=== PATIENT | male | born 1960 | race Caucasian/White ===

== ENCOUNTER → 2017-01-06 | Outpatient (CLI) | payer OTHER ==
[~2017-01-06] MED LIST: ACYC-57 PO; ALPR1TAB3 PO; ATOR-22 PO; IBUP-1451 PO; OXYC-106 PO; VALA1TAB PO
== END | disposition home or self-care (01) ==
LOC: C.LAB 07:02
PROVIDERS: ATTEND Internal Medicine Cardiovascular Disease
DX: Z11.59 Encounter for screening for other viral diseases (principal); E78.5 Hyperlipidemia, unspecified

== ENCOUNTER → 2017-03-12 | Outpatient (CLI) | payer OTHER ==
[2017-03-12 13:39] LABS: LYME DISEASE AB IGG NEG (NEG); LYME DISEASE AB IGM NEG (NEG)
== END | disposition home or self-care (01) ==
LOC: C.LAB 08:44
PROVIDERS: ATTEND Physician Assistant Medical
DX: M25.50 Pain in unspecified joint (principal)

== ENCOUNTER → 2017-07-22 | Outpatient (CLI) | payer OTHER ==
[~2017-07-22] MED LIST changes: -ACYC-57 PO; +ACYC1CAP8 PO
[2017-07-22 10:00] LABS: ALT/SGPT 27 U/L (12-78); AST/SGOT 19 U/L (15-37); BLOOD UREA NITROGEN 14 mg/dl (7-18); CALCIUM 9.2 mg/dl (8.5-10.1); CARBON DIOXIDE 24 mmol/L (21-32); CHLORIDE 106 mmol/L (98-107); CHOLESTEROL 210 mg/dl (0-200); CREATININE 0.64 mg/dl (0.60-1.40); GLUCOSE 94 mg/dl (70-99); POTASSIUM 4.5 mmol/L (3.5-5.1); SODIUM 136 mmol/L (136-145); TRIGLYCERIDES 100 mg/dl (0-150); VERY LOW DENSITY LIPOPROT CALC 20 mg/dl
[2017-07-22 10:03] LABS: HDL CHOLESTEROL 70 mg/dl; LDL CHOLESTEROL CALCULATED 120 mg/dl
== END | disposition home or self-care (01) ==
LOC: C.LAB 07:29
PROVIDERS: ATTEND Internal Medicine Cardiovascular Disease
DX: E78.5 Hyperlipidemia, unspecified (principal); I10 Essential (primary) hypertension

== ENCOUNTER 2017-10-25 06:19 | Emergency (ER) | payer OTHER ==
[~2017-10-25] VITALS: Ht 175.3 cm; Wt 77.0 kg
[~2017-10-25 06:19] MED LIST changes: +ACYC-57 PO; -ACYC1CAP8 PO
[2017-10-25 06:26] VITALS: TEMP 36.7; Ht 175.3 cm; Wt 77.0 kg
[2017-10-25] MEDS ORDERED: HYDROmorphone INJ 2 MG/ML SYR/VIAL IV STA (06:42)
[2017-10-25] MEDS ORDERED: KETOROLAC TROMETHAMINE 30 MG/ML VIAL IV STA (06:42)
[2017-10-25] MEDS ORDERED: ONDANSETRON INJ 2 MG/ML 2 ML VIAL IV STA (06:42)
--- NOTE | 2017-10-25 07:31 | DIAGNOSTIC IMAGING REPORT ---
LUMBAR SPINE 5 VIEWS CLINICAL HISTORY: Low back pain radiating into the right leg. FINDINGS: 5 views of the lumbar spine are obtained No prior studies are available for comparison at the time of dictation. . The skeletal structures are well mineralized. There is no radiographic evidence of fracture or malalignment. Vertebral body height and alignment are maintained. The transverse and spinous processes are intact. There is no evidence of spondylolysis. Tiny anterior osteophytes are seen throughout. The intervertebral disc spaces are well-maintained. The visualized bony pelvis appears intact. There is a nonobstructed abdominal bowel gas pattern. Moderate colonic fecal retention is noted. Phleboliths are observed in the pelvis. There is age advanced atherosclerotic calcification of the abdominal aorta. Surgical clips are noted in the right groin. IMPRESSION: No acute bony abnormality is seen involving the lumbosacral spine. Electronically signed by: Pee Todd M.D. 10/25/2017 7:29 AM Dictated Date/Time: 10/25/2017 7:28 AM
[2017-10-25] MEDS ORDERED: OPTIRAY 320 IV PRN (07:45)
--- NOTE | 2017-10-25 08:01 | EMERGENCY ROOM VISIT NOTE ---
History Report prepared by Kaitlyn: Carmelita Robles Under the Supervision of: Dr. Ernesto Boykin M.D. First contact with patient: 06:36 Chief Complaint: BACK PAIN Stated Complaint: BACK PAIN,SHOOTING PAINS DOWN RT LEG,TOP OF BUTTOC History of Present Illness The patient is a 56 year old male who presents to the Emergency Room with complaints of persistent back pain starting around 16 hours ago. The patient slipped on ice yesterday and nearly fell. He twisted his back and felt a twinge in his right lower back. He rates his discomfort as an 8/10 in severity at rest. The pain worsens with movement. He reports burning and tingling down his right thigh to his knee. He had some numbness in his foot for a short time yesterday. He currently does not have any numbness or tingling in his feet. He has tried taking ibuprofen, cyclobenzaprine, and Percocet which has taken the edge off the pain. He has a history of hypertension, high cholesterol, and sciatica. Pt denies LOC, headache, neck pain, fevers, chills, malaise, night sweats, weight loss, history of malignancy, chest pain, breathing difficulties, abdominal pain, saddle parasthesias, bowel or bladder dysfunction, weakness, urinary symptoms, or other complaints. Source of History: patient Onset: 16 hours ago Position: back (right lower) Symptom Intensity: 8/10 Quality: other (pain) Timing: other (persistent) Modifying Factors (Worsening): movement Associated Symptoms: + numbness (resolved) Note: Pt reports right thigh burning. Review of Systems See HPI for pertinent positives and negatives. A total of ten systems were reviewed and were otherwise negative. Past Medical & Surgical Medical Problems: (1) Hypercholesteremia (2) Hypertension Family History Hypertension Social History Smoking Status: Never Smoker Alcohol Use: occasionally Marital Status: Housing Status: lives with significant other Occupation Status: employed Current/Historical Medications Scheduled Atorvastatin (Lipitor), 20 MG PO DAILY Ibuprofen Tab (Motrin), 800 MG PO QAM Prednisone (Prednisone), 50 MG PO DAILY Scheduled PRN Alprazolam (Xanax), 1 MG PO BID PRN for Anxiety/Agitation Oxycodone Ir (Roxicodone Ir), 1-2 TAB PO Q4H PRN for Pain Allergies Coded Allergies: No Known Allergies (Unverified , 10/25/17) Physical Exam Vital Signs Date Time Temp Pulse Resp B/P (MAP) Pulse Ox O2 Delivery O2 Flow Rate FiO2 10/25/17 11:26 60 18 139/88 96 10/25/17 11:07 57 18 139/88 96 Room Air 10/25/17 06:59 71 18 97 10/25/17 06:54 67 20 97 Room Air 10/25/17 06:54 67 10/25/17 06:49 117/74 10/25/17 06:26 36.7 80 18 154/85 98 Room Air Physical Exam GENERAL: Awake, alert, uncomfortable-appearing, in no distress HENT: Normocephalic, atraumatic. Oropharynx unremarkable. EYES: Normal conjunctiva. Sclera non-icteric. NECK: Supple. No nuchal rigidity. FROM. No JVD. RESPIRATORY: Clear to auscultation. CARDIAC: Regular rate, normal rhythm. Extremities warm and well perfused. Pulses equal. ABDOMEN: Soft, non-distended. No tenderness to palpation. No rebound or guarding. No masses. RECTAL: Deferred. MUSCULOSKELETAL: Chest examination reveals no tenderness. The back is symmetrical on inspection without obvious abnormality. Tenderness in the right sciatic notch. There is no CVA tenderness to palpation. No joint edema. LOWER EXTREMITIES: Calves are equal size bilaterally and non-tender. No edema. No discoloration. NEURO: Normal sensorium. No sensory or motor deficits noted. No saddle anesthesia. Reflexes symmetric. Normal EHL function. SKIN: No rash or jaundice noted. Medical Decision & Procedures ER Provider Diagnostic Interpretation: Xray results as stated below per my and radiologist interpretation. Radiology results as stated below per my review and radiologist interpretation: LUMBAR SPINE 5 VIEWS CLINICAL HISTORY: Low back pain radiating into the right leg. FINDINGS: 5 views of the lumbar spine are obtained No prior studies are available for comparison at the time of dictation. . The skeletal structures are well mineralized. There is no radiographic evidence of fracture or malalignment. Vertebral body height and alignment are maintained. The transverse and spinous processes are intact. There is no evidence of spondylolysis. Tiny anterior osteophytes are seen throughout. The intervertebral disc spaces are well-maintained. The visualized bony pelvis appears intact. There is a nonobstructed abdominal bowel gas pattern. Moderate colonic fecal retention is noted. Phleboliths are observed in the pelvis. There is age advanced atherosclerotic calcification of the abdominal aorta. Surgical clips are noted in the right groin. IMPRESSION: No acute bony abnormality is seen involving the lumbosacral spine. Electronically signed by: Pee Todd M.D. 10/25/2017 7:29 AM Dictated Date/Time: 10/25/2017 7:28 AM ABDOMEN AND PELVIS CTA CLINICAL HISTORY: Right-sided back pain. Right leg pain. TECHNIQUE: Multiaxial CT images of the abdomen pelvis performed following the use of intravenous contrast only to evaluate the major arterial structures. Maximal intensity projection images were also obtained. COMPARISON STUDY: None. FINDINGS: Moderate calcified plaque within the abdominal aorta and common iliac arteries. The abdominal aorta is normal in course and caliber with no evidence for dissection. The iliac arteries are also widely patent. Moderate calcified plaque within the femoral arteries resulting in approximately 30% stenosis within the proximal bilateral superficial femoral arteries. The celiac artery, superior mesenteric artery, inferior mesenteric artery, and single bilateral renal arteries are widely patent. Punctate calcified granuloma within the right lower lobe. No pneumoperitoneum. No pneumatosis. No fractures within the visualized osseous structures. There is atrophic right rectus abdominous muscle. The liver, gallbladder, adrenal glands, and pancreas are unremarkable. Heterogeneous perfusion within the spleen is likely due to the timing of contrast. The kidneys enhance normally. No hydronephrosis. No retroperitoneal lymphadenopathy. The bladder is mildly distended. No bowel wall thickening or obstruction. Normal appendix. IMPRESSION: 1. No evidence for aneurysm or dissection within the aorta or iliac arteries. 2. Approximately 30% focal stenosis within the proximal bilateral superficial femoral arteries. 3. No bowel wall thickening or obstruction. 4. Normal appendix. Electronically signed by: Osvaldo Serrano M.D. 10/25/2017 10:05 AM Dictated Date/Time: 10/25/2017 9:49 AM Laboratory Results 10/25/17 07:50 Red Blood Count 3.94, Mean Corpuscular Volume 95.4, Mean Corpuscular Hemoglobin 35.0, Mean Corpuscular Hemoglobin Concent 36.7, Mean Platelet Volume 8.7, Neutrophils (%) (Auto) 71.1, Lymphocytes (%) (Auto) 18.6, Monocytes (%) (Auto) 8.5, Eosinophils (%) (Auto) 1.4, Basophils (%) (Auto) 0.2, Neutrophils # (Auto) 4.63, Lymphocytes # (Auto) 1.21, Monocytes # (Auto) 0.55, Eosinophils # (Auto) 0.09, Basophils # (Auto) 0.01 10/25/17 07:50 Test 10/25/17 07:50 White Blood Count 6.50 K/uL (4.8-10.8) Red Blood Count 3.94 M/uL (4.7-6.1) Hemoglobin 13.8 g/dL (14.0-18.0) Hematocrit 37.6 % (42-52) Mean Corpuscular Volume 95.4 fL (80-100) Mean Corpuscular Hemoglobin 35.0 pg (25-34) Mean Corpuscular Hemoglobin Concent 36.7 g/dl (32-36) Platelet Count 215 K/uL (130-400) Mean Platelet Volume 8.7 fL (7.4-10.4) Neutrophils (%) (Auto) 71.1 % Lymphocytes (%) (Auto) 18.6 % Monocytes (%) (Auto) 8.5 % Eosinophils (%) (Auto) 1.4 % Basophils (%) (Auto) 0.2 % Neutrophils # (Auto) 4.63 K/uL (1.4-6.5) Lymphocytes # (Auto) 1.21 K/uL (1.2-3.4) Monocytes # (Auto) 0.55 K/uL (0.11-0.59) Eosinophils # (Auto) 0.09 K/uL (0-0.5) Basophils # (Auto) 0.01 K/uL (0-0.2) RDW Standard Deviation 45.3 fL (36.4-46.3) RDW Coefficient of Variation 13.0 % (11.5-14.5) Immature Granulocyte % (Auto) 0.2 % Immature Granulocyte # (Auto) 0.01 K/uL (0.00-0.02) Anion Gap 10.0 mmol/L (3-11) Est Creatinine Clear Calc Drug Dose 128.5 ml/min Estimated GFR () 126.9 Estimated GFR (Non- 109.5 BUN/Creatinine Ratio 15.3 (10-20) Calcium Level 9.3 mg/dl (8.5-10.1) Laboratory results reviewed by [facility] Medications Administered Medications (Trade) Dose Ordered Sig/Foreign Route Start Time Stop Time Status Last Admin Dose Admin Ondansetron HCl (Zofran Inj) 4 mg NOW STAT IV 10/25/17 06:42 10/25/17 06:47 DC 10/25/17 07:04 4 MG Hydromorphone HCl (Dilaudid Inj) 1 mg NOW STAT IV 10/25/17 06:42 10/25/17 06:47 DC 10/25/17 07:04 1 MG Ketorolac Tromethamine (Toradol Inj) 15 mg NOW STAT IV 10/25/17 06:42 10/25/17 06:47 DC 10/25/17 07:04 15 MG Hydromorphone HCl (Dilaudid Inj) 0.5 mg NOW STAT IV 10/25/17 09:15 10/25/17 09:16 DC 10/25/17 09:39 0.5 MG Prednisone (PredniSONE TAB) 60 mg NOW STAT PO 10/25/17 11:14 10/25/17 11:15 DC 10/25/17 11:20 60 MG ED Course 0641: The patient was evaluated in room B4B. A complete history and physical exam was performed. 0642: Toradol Inj 15 mg IV, Dilaudid Inj 1 mg IV, Zofran Inj 4 mg IV. 0740: I reevaluated the patient. He is feeling better. I updated him on the results. 0856: The patient has returned from CT. 0912: The patient is requesting something more for pain. 0915: Dilaudid Inj 0.5 mg IV. 1032: I reevaluated the patient. I discussed results and discharge instructions : He verbalized understanding and agreement. The patient is ready for discharge. Medical Decision Prior records/ancillary studies reviewed. Triage Nursing notes reviewed and agree them. Additional history obtained from the family. The patient's history was concerning for back pain. Differential diagnosis: Etiologies such as fracture, aortic disease, metastatic disease, cord compression, discitis, infection, renal colic, gastrointestinal, lumbago, sciatica, cauda equina, as well as others were entertained. Physical findings: As above. Right-sided sciatic notch tenderness. ER treatment provided: Saline lock IV Zofran IV Dilaudid 1 mg IV Toradol 10 mg On reassessment the patient felt better. The patient had recurrent pain and was given Dilaudid 0.5 mg. On reassessment he felt much better. Diagnostics interpreted by me: The labs revealed unremarkable CBC and chemistry panel. Imaging studies: X-rays and CT angiogram as above The patient has symptoms consistent with sciatica. The patient was found to have significant aortic calcification on x-ray imaging. CT did not reveal any evidence of dissection. He also has some narrowing of his femoral arteries but denies any symptoms of claudication. The patient will need close follow-up. He is being monitored by cardiology and his primary physician secondary to his family history of coronary disease. Close outpatient follow-up will be necessary. The patient and his were educated. I gave my usual and customary discussion regarding this issue. By the evaluation outlined above emergent etiologies such as fracture, aortic dissection, metastatic disease, infection, renal colic, gastrointestinal, cord compression, cauda equina, as well as others were deemed relatively unlikely. The patient was informed about the findings as listed above. All questions were answered and was very pleased with the treatment. Return instructions were outlined and the patient was discharged in stable condition. Outpatient prescription management: Oxy IR 5mg 1-2 po Q4 hrs prn Prednisone Referral: The patient was referred back to his primary care physician and to [facility] spine for follow-up for a recheck of the current condition. [place] Drug Monitoring Program Search Results: patient reviewed within database, no issues identified Medication Reconcilliation Current Medication List: was personally reviewed by me Blood Pressure Screening Patient's blood pressure: Elevated blood pressure Blood pressure disposition: Referred to PCP Impression Primary Impression: Right-sided back pain Additional Impressions: Sciatica Atherosclerosis of abdominal aorta Scribe Attestation The scribe's documentation has been prepared under my direction and personally reviewed by me in its entirety. I confirm that the note above accurately reflects all work, treatment, procedures, and medical decision making performed by me. Departure Information Dispostion Home / Self-Care Prescriptions Oxycodone Ir (Roxicodone Ir) 5 Mg Tab 1-2 TAB PO Q4H Y for Pain, #15 TAB Prov: Ernesto Boykin MD 10/25/17 Prednisone (Prednisone) 50 Mg Tab 50 MG PO DAILY for 4 Days, #4 TAB Prov: Ernesto Boykin MD 10/25/17 Referrals Maik Whitten M.D. (PCP) Thaddeus Medrano D.O. Patient Instructions My [facility] Additional Instructions DO NOT drive, drink alcohol, operate machinery, or perform dangerous activities today. You were given medications in the ER that can affect your ability to safely function or operate a vehicle. Prednisone 50mg: Once daily until the prescription is finished. It is best to take this earlier in the day as some patients note occasional difficulty falling asleep when taken in the late evening. Oxycodone (OxyIR) 5mg: Take 1-2 pills every four hours for breakthrough pain. Avoid alcohol, operating machinery or dangerous equipment, working on ladders or roofs, DRIVING, or situations where being under the influence may be dangerous. It is recommended to use an [id number] stool softener such as Colace, 100mg twice daily while taking this medication to avoid constipation. Ibuprofen(Motrin, Advil) may be used for fever or pain. Use 600mg every six hours as needed. Take with food. Avoid using more than 2400mg in a 24 hour period. Do not use 2400mg per day for more than three consecutive days without physician direction. Prolonged inappropriate use can lead to stomach upset or ulcers. This medication can be taken if you need to drive, work, or perform activities which may be dangerous when taking narcotic pain medication. (AND/OR) Acetaminophen(Tylenol) may be used for fever or pain. Use 1000mg every six hours as needed. Avoid using more than 4000mg in a 24 hour period. This medication can be taken if you need to drive, work, or perform activities which may be dangerous when taking narcotic pain medication. Rest and avoid heavy lifting until your symptoms resolve and then gradually return to full activity. A good rule of thumb is if it hurts your back to perform a certain activity, then it should be avoided until you are healthy again. A heating pad, warm compresses, or a hot shower may help with tight muscles and can be done several times a day as needed. Continue current medications. Return to the ER immediately for any numbness, tingling, severe pain, loss of control of your bowels or bladder, inability to walk, or as needed. Follow up with your primary care physician and orthopedic spine for a recheck of your current condition. Number for Dr. Medrano is listed below. Problem Qualifiers
[2017-10-25 08:08] LABS: BASO % 0.2 %; BASO ABS # 0.01 K/uL (0-0.2); EOS % 1.4 %; EOS ABS # 0.09 K/uL (0-0.5); HEMATOCRIT 37.6 % (42-52); HEMOGLOBIN 13.8 g/dL (14.0-18.0); IG# 0.01 K/uL (0.00-0.02); LYMPH % 18.6 %; LYMPH ABS # 1.21 K/uL (1.2-3.4); MEAN CELL VOLUME 95.4 fL (80-100); MEAN CORPUSCULAR HGB CONC 36.7 g/dl (32-36); MEAN PLATELET VOLUME 8.7 fL (7.4-10.4); MONO % 8.5 %; MONO ABS # 0.55 K/uL (0.11-0.59); NEUT % 71.1 %; NEUT ABS # 4.63 K/uL (1.4-6.5); PLATELET COUNT 215 K/uL (130-400); RED CELL DISTRIBUTION WIDTH SD 45.3 fL (36.4-46.3)
[2017-10-25 08:25] LABS: CALCIUM 9.3 mg/dl (8.5-10.1); CREATININE 0.65 mg/dl (0.60-1.40)
[2017-10-25] MEDS ORDERED: HYDROmorphone INJ 0.5 MG/0.5 ML SYR IV STA (09:15)
--- NOTE | 2017-10-25 10:06 | DIAGNOSTIC IMAGING REPORT ---
ABDOMEN AND PELVIS CTA CLINICAL HISTORY: Right-sided back pain. Right leg pain. TECHNIQUE: Multiaxial CT images of the abdomen pelvis performed following the use of intravenous contrast only to evaluate the major arterial structures. Maximal intensity projection images were also obtained. COMPARISON STUDY: None. FINDINGS: Moderate calcified plaque within the abdominal aorta and common iliac arteries. The abdominal aorta is normal in course and caliber with no evidence for dissection. The iliac arteries are also widely patent. Moderate calcified plaque within the femoral arteries resulting in approximately 30% stenosis within the proximal bilateral superficial femoral arteries. The celiac artery, superior mesenteric artery, inferior mesenteric artery, and single bilateral renal arteries are widely patent. Punctate calcified granuloma within the right lower lobe. No pneumoperitoneum. No pneumatosis. No fractures within the visualized osseous structures. There is atrophic right rectus abdominous muscle. The liver, gallbladder, adrenal glands, and pancreas are unremarkable. Heterogeneous perfusion within the spleen is likely due to the timing of contrast. The kidneys enhance normally. No hydronephrosis. No retroperitoneal lymphadenopathy. The bladder is mildly distended. No bowel wall thickening or obstruction. Normal appendix. IMPRESSION: 1. No evidence for aneurysm or dissection within the aorta or iliac arteries. 2. Approximately 30% focal stenosis within the proximal bilateral superficial femoral arteries. 3. No bowel wall thickening or obstruction. 4. Normal appendix. Electronically signed by: Osvaldo Serrano M.D. 10/25/2017 10:05 AM Dictated Date/Time: 10/25/2017 9:49 AM
[2017-10-25] MEDS ORDERED: OXYC1TAB3 PO (11:01)
[2017-10-25] MEDS ORDERED: PRED50TA PO (11:01)
[2017-10-25 11:26] VITALS: BP 139/88; PULSE 60; O2SAT 96
== END 2017-10-25 11:26 | disposition home or self-care (01) ==
LOC: C.EDB 06:21
DX: M54.41 Lumbago with sciatica, right side (principal); I70.0 Atherosclerosis of aorta; I10 Essential (primary) hypertension; E78.00 Pure hypercholesterolemia, unspecified; Z79.899 Other long term (current) drug therapy; W00.9XXA Unspecified fall due to ice and snow, initial encounter

== ENCOUNTER → 2018-01-19 | Outpatient (CLI) | payer OTHER ==
[~2018-01-19] MED LIST changes: -ACYC-57 PO; -OXYC-106 PO; +OXYC1TAB3 PO; -VALA1TAB PO
[2018-01-19 10:02] LABS: ALT/SGPT 27 U/L (12-78); AST/SGOT 25 U/L (15-37); BLOOD UREA NITROGEN 11 mg/dl (7-18); CALCIUM 9.9 mg/dl (8.5-10.1); CARBON DIOXIDE 30 mmol/L (21-32); GLUCOSE 78 mg/dl (70-99); POTASSIUM 4.4 mmol/L (3.5-5.1); SODIUM 134 mmol/L (136-145)
[2018-01-19 10:05] LABS: CHOLESTEROL 206 mg/dl (0-200); LDL CHOLESTEROL CALCULATED 104 mg/dl
== END | disposition home or self-care (01) ==
LOC: C.LAB 07:06
PROVIDERS: ATTEND Internal Medicine Cardiovascular Disease
DX: E78.5 Hyperlipidemia, unspecified (principal); I10 Essential (primary) hypertension; Z12.5 Encounter for screening for malignant neoplasm of prostate

== ENCOUNTER 2023-08-29 12:03 | Inpatient (IN) ==
--- NOTE | 2023-08-29 12:43 | Emergency Department Note ---
History of Present Illness General Chief complaint: Back Injury/Pain Stated complaint: BACK PAIN, DIFFICULTY WALKING Time Seen by Provider: 08/29/23 12:19 History of Present Illness Maximum Pain Intensity: 8 NAME: JOSE BELTRÁN AGE: 62 SEX: M : 1960 ARRIVES VIA: Walk-In INFORMANT: Patient ED PROVIDER(S): DARYL Hedrick, Donna Victoria MD The patient is a 62-year-old male who arrives to the emergency department for evaluation of sacral pain from a known L4-L5 1.6 centimeter synovial cyst with severe central canal stenosis. The patient was offered admission at the time or the option to attempt to get through the weekend at home with evaluation from Dr. Medrano on Wednesday. The patient chose to go home for the weekend, he was provided pain medication and steroids as directed by Dr. Medrano. The patient was instructed to return Wednesday if the pain was worsening, for admission at that time with a procedure the following day. At this time the patient's symptoms are worsening even with the pain medication and steroids. The patient reports he is unable to walk at this point without severe pain. He reports he is having a difficult time emptying his bladder due to the pain it causes him to create a strong urine stream. The patient denies any fever, loss of bowel or bladder, or numbness/tingling in the groin, at this time. Home Medications Medication Instructions Recorded Confirmed Type coenzyme Q10 100 mg capsule 200 mg PO QAM 03/19/20 08/29/23 History valacyclovir 1 gram tablet 2,000 mg (2 x 1 gram) PO BID PRN 10/12/22 08/29/23 Rx herpes simplex, type 1 infection #60 tabs dutasteride 0.5 mg capsule 0.5 mg PO DAILY #30 caps 06/16/23 08/29/23 Rx (Avodart) tamsulosin 0.4 mg capsule 0.4 mg PO DAILY #30 caps 06/30/23 08/29/23 Rx marijuana card See Rx Instructions .Route .COMPLEX 08/02/23 08/29/23 History atorvastatin 20 mg tablet 20 mg PO HS #90 tabs 08/17/23 08/29/23 Rx cyclobenzaprine 10 mg tablet 10 mg PO .COMPLEX PRN muscle spasm 08/24/23 08/29/23 Rx #90 tabs lidocaine 5 % topical patch 1 patch topical DAILY #3 ea 08/27/23 08/29/23 Rx (DermacinRx Lidocan) prednisone 20 mg tablet 40 mg (2 x 20 mg) PO DAILY 5 days 08/27/23 08/29/23 Rx #10 tabs oxycodone 5 mg tablet 5 mg PO Q6H PRN pain 08/29/23 08/29/23 History Allergies Allergy/AdvReac Type Severity Reaction Status Date / Time No Known Allergies Allergy Verified 08/24/23 11:38 Past Med/Surg History Medical History (Updated 08/29/23 @ 17:36 by DARYL Dwyer) Sacroiliac joint pain Muscle strain of left gluteal region Degloving injury Sciatica of right side Hypertension Surgical History S/P trigger finger release H/O arthroscopy of right knee S/P wisdom tooth extraction History of surgery also has history of arm incision Family History Grandmother Cardiovascular disorder Heart disease Grandfather Cardiovascular disorder Heart disease Sister Heart disease Brother Prostate cancer Denies family history of Ovarian cancer Myocardial infarction Breast cancer Colorectal cancer Social History Smoking Status: Never smoker Age Started Using Tobacco: 19; Age Quit Using Tobacco: 54; packs per day: 1; Cigarettes Per Day: pt states he quites on and off again but has not smoked since; Second Hand Exposure: No; Do You Dip or Chew Tobacco: No; Hx Alcohol Use: Yes Alcohol type: beer Hx Substance Use: No Preferred Language: Hungarian Communication Ability: Effective Visual Impairment: No Limitations Hearing Ability: Normal Paranormal Investigator Required: No Beliefs That Will Affect Care: None marital status: Current Living Situation: Spouse current occupational status: employed Feels Safe at Home: Yes Childhood Exposure to Second-Hand Smoke: Yes Diet: other Diet Comment: brand diet Dental Care, Regularly: Yes Physical Activity Frequency: 3-4 Times per Week Seatbelt Use: always Sunscreen Use: Yes Assistive Devices: Glasses Physical Exam Vital Signs Vital Signs - 24 hr 08/29/23 12:07 Temperature 36.3 C L Temperature Source Temporal Artery Scan Pulse Rate 89 Respiratory Rate 20 Respiratory Effort / Characteristics Non-Labored Respiratory Depth Normal Blood Pressure 124/75 Blood Pressure Mean 91 Pulse Oximetry 95 Oxygen Delivery Method Room Air Sepsis Recent Fever Within 48 Hours No Sepsis New/Unexplained Change in Mental Status N/A Sepsis Action Taken by Nursing No Action Required Constitutional WD/WN, vitals as above Eyes PERRL, conjunctivae normal, anicteric sclerae Respiratory normal respiratory effort, lungs clear to auscultation Cardiovascular RRR, no murmur, no edema Gastrointestinal (Abdomen) normal bowel sounds, soft, nontender, no hepatosplenomegaly Musculoskeletal Spine: + limited thoraco-lumbar ROM, + lumbar spine abnormal to inspection, + pain with thoraco-lumbar ROM and + lumbar spinal tenderness; straight leg raise negative bilaterally Extremities: + extremities abnormal to inspection and + abnormal strength (BLE decreased strength with standing) Gait: + antalgic gait Skin no rashes, warm and dry Neurologic patellar DTR's 2+ bilat, sensation intact Psychiatric A+Ox3, euthymic affect Genitourinary Post-micturition dribbling Lymphatic no cervical or axillary lymphadenopathy Course Consultations Consultation #1: Dr. Medrano was consulted at this time for evaluation and possible admission. Time: 12:50 Administered Medications Discontinued Medications Hydromorphone HCl (Hydromorphone Inj 0.5 Mg/0.5 Ml Syr) 0.5 mg IV NOW STA Stop: 08/29/23 14:07 Last Admin: 08/29/23 14:17 Dose: 0.5 mg Documented By: GGG Medical Decision Making Differential Diagnosis Fracture, subluxation, dislocation, contusion, ligamentous injury, neurovascular, compartment syndrome, rhabdomyolysis, as well as other pathologies. Medical Records Attestation: I reviewed the patient's medical records. Home Medications Current Medication List: was personally reviewed by me Laboratory Data 08/29/23 17:10 08/29/23 17:10 Blood Pressure Blood Pressure Findings: Elevated blood pressure Blood Pressure Disposition: elevated BP felt to be situational MDM Narrative This is a 62-year-old male who arrives to the emergency department for evaluation of lumbar pain. The patient was seen here on Wednesday with an attempt to get through the weekend he was provided oral steroids and oral oxycodone per Dr. Medrano's request. The patient was educated at that time to return to the emergency department if he had pain so severe that he was unable to tolerate it until Wednesday. The patient arrived today with 10 out of 10 pain difficulty walking, as well as a feeling of urinary retention. Dr. Medrano was contacted upon the patient's arrival to which he has decided to admit the patient for pain control and evaluation. I provided the patient with 1 dose of IV hydromorphone for pain prior to him leaving my care. Impression & Plan Lumbar canal stenosis Discharge Plan Visit Data Chief Complaint: Back Injury/Pain Stated Complaint: BACK PAIN, DIFFICULTY WALKING ED Provider: Donna Victoria ED Midlevel Provider: Rosalia Hurd Discharge Problem: Lumbar canal stenosis Discharge Instructions Interventions: ED Discharge Assessment Last Done: 08/29/23 16:57
[2023-08-29] MEDS ORDERED: HYDROmorphone INJ 0.5 MG/0.5 ML SYR IV STA (14:06)
[2023-08-29] MEDS ORDERED: ONDANSETRON 4 MG OD TAB PO PRN (17:00)
[2023-08-29] MEDS ORDERED: ACETAMINOPHEN 1,000 MG/100 ML VIAL IV PRN (17:00)
[2023-08-29] MEDS ORDERED: LORazepam 0.5 MG TAB PO PRN (17:00)
[2023-08-29] MEDS ORDERED: METOCLOPRAMIDE HCL INJ 5 MG/ML 2 ML VIAL IV PRN (17:00)
[2023-08-29] MEDS ORDERED: PROMETHAZINE HCL 12.5 MG in SODIUM CHLORIDE 0.9% 50 ML IV PRN (17:00)
[2023-08-29] MEDS ORDERED: HYDROmorphone INJ 1 MG/ML SYRINGE IV PRN (17:00)
[2023-08-29] MEDS ORDERED: LORazepam 0.5 MG in SYRINGE 0.25 ML IV PRN (17:00)
[2023-08-29] MEDS ORDERED: ONDANSETRON INJ 2 MG/ML 2 ML VIAL IV PRN (17:00)
[2023-08-29] MEDS ORDERED: ACETAMINOPHEN 500 MG TAB PO PRN (17:00)
[2023-08-29] MEDS ORDERED: HYDROmorphone INJ 0.5 MG/0.5 ML SYR IV PRN (17:00)
[2023-08-29] MEDS ORDERED: NALOXONE HCL 0.4 MG/1 ML VIAL/CARP IV PRN (17:00)
[2023-08-29 17:30] LABS: Hematocrit (blood only) 35.5 % (42.0-52.0); Hemoglobin 13.1 g/dl (14.0-18.0); Immature Granulocytes # (auto) 0.06 K/uL (0.01-0.20); Immature Granulocytes % (auto) 0.7 %; Lymphocytes # (auto) 1.03 K/uL (1.20-3.40); Lymphocytes % (auto) 12.5 %; Mean Corpuscular Hemoglobin 35.5 pg (25.0-34.0); Mean Corpuscular Hgb Conc 36.9 g/dL (32.0-36.0); Mean Corpuscular Volume 96.2 fL (80.0-100.0); Mean Platelet Volume 8.3 fL (9.4-12.4); Monocytes # (auto) 0.53 K/uL (0.11-0.59); Monocytes % (auto) 6.4 %; Neutrophils % (auto) 80.4 %; Platelet Count 237 K/uL (130-400); RDW Coefficient of Variation 11.7 % (11.5-14.5); RDW Standard Deviation 41.2 fL (36.4-46.3); Red Blood Count 3.69 M/uL (4.70-6.10); White Blood Count 8.22 K/ul (4.8-10.8)
[2023-08-29 17:43] LABS: Albumin Level 4.4 gm/dl (3.4-5.0); BUN Creatinine Ratio 25.3 (10-20); Bilirubin,Total 0.6 mg/dl (0.2-1.0); Calcium 9.3 mg/dl (8.6-10.3); Creatinine Clr Calc Pharmacy 97.3 ml/min; Est GFR (African American) 114.8 ml/min; Globulin 2.2 gm/dl (2.5-4.0); Potassium 4.3 mmol/L (3.5-5.1); Total Protein 6.6 gm/dl (6.0-8.3)
--- NOTE | 2023-08-29 17:49 | XRay Report ---
XR chest 2V PA/lateral CLINICAL HISTORY: preop TECHNIQUE: 2 views of the chest were obtained. Comparison: None available at the time of this dictation. FINDINGS: No lines and tubes are seen. The cardiomediastinal silhouette is normal. The lungs are clear. No evid ence of pleural effusion or pneumothorax. IMPRESSION: No acute chest disease. ACT 112: Negative or not required by law. Electronically signed by: Dirk Tellez M.D. 08/29/2023 5:47 PM
[2023-08-29] MEDS: LACTATED RINGER'S 1,000 ML IV SCH (18:07)
[2023-08-29] MEDS ORDERED: Nursing to Pharmacy Communication SCH (20:30)
[2023-08-29] MEDS ORDERED: ATORVASTATIN 20 MG TAB PO SCH (21:00)
[2023-08-29] MEDS: oxyCODONE HCL IR 5 MG TAB (IMMEDIATE RELEASE) PO PRN (23:56)
[2023-08-30] MEDS ORDERED: ceFAZolin 2000MG 2,000 MG/15 ML SYR IV SCH (06:00)
[2023-08-30] MEDS: oxyCODONE HCL IR 5 MG TAB (IMMEDIATE RELEASE) PO PRN ×3 (06:31→22:58)
[2023-08-30] MEDS: LACTATED RINGER'S 1,000 ML IV SCH ×2 (07:32→19:26)
[2023-08-30] MEDS: FINASTERIDE 5 MG TAB PO SCH (07:34)
[2023-08-30] MEDS: ATORVASTATIN 20 MG TAB PO SCH (07:34)
[2023-08-30] MEDS: TAMSULOSIN HCL 0.4 MG CAP PO SCH (07:34)
[2023-08-30] MEDS ORDERED: LIDOCAINE 5% 1 PATCH TD SCH (09:00)
[2023-08-30] MEDS ORDERED: NON-FORMULARY MEDICATION (Coenzyme Q10 100 mg capsule) PO SCH (09:00)
--- NOTE | 2023-08-30 09:28 | History & Physical Report ---
Date of Service August 30, 2023 Assessment & Plan (1) Neurogenic claudication due to lumbar spinal stenosis: Plan: Assessment lumbar spinal stenosis with neurogenic claudication and progressive neural deficit. Plan MRI lumbar spine performed earlier this week does demonstrate severe spinal stenosis secondary to facet of perjury and facet cyst L4-5. There is severe neuroforaminal disease at L3-L4 on the left. In light of his presentation progressive neuro deficit and urinary retention and recommending emergent decompression fusion L3-L4 L4-5. Risk benefits pros cons and alternatives were outlined detail. Risk include but not limited to anesthesia blindness stroke paralysis nerve damage blood loss requiring transfusion infection requiring reoperation possibly stabilization of the lumbar spine and improvement of his pain and ability to ambulate. Admission and Anticipated Discharge Date Admission Date: August 29, 2023 History of Present Illness Chief Complaint: Back with bilateral leg pain and inability to ambulate. Primary Care Provider: Francisco Flannery DO This is a 62-year-old male presents with a steady decline in status. He is now had to come to the emergency room on 2 occasions secondary to severe bilateral leg pain weakness and inability to ambulate. He is noting urinary retention. He does have a history of undergoing progressive difficulty over the past year. Is undergone physical therapy as well as several epidural injections without long standing relief. His decline has been dramatic over the past week. He has pain rating the buttocks posterior thigh into his calves. His legs buckle when he stands secondary to pain. He also notes the left groin pain with anterior thigh pain. Allergies Allergy/AdvReac Type Severity Reaction Status Date / Time No Known Allergies Allergy Verified 08/24/23 11:38 Home Medications Medication Instructions Recorded Confirmed Type coenzyme Q10 100 mg capsule 200 mg PO QAM 03/19/20 08/29/23 History valacyclovir 1 gram tablet 2,000 mg (2 x 1 gram) PO BID PRN 10/12/22 08/29/23 Rx herpes simplex, type 1 infection #60 tabs dutasteride 0.5 mg capsule 0.5 mg PO DAILY #30 caps 06/16/23 08/29/23 Rx (Avodart) tamsulosin 0.4 mg capsule 0.4 mg PO DAILY #30 caps 06/30/23 08/29/23 Rx marijuana card See Rx Instructions .Route .COMPLEX 08/02/23 08/29/23 History atorvastatin 20 mg tablet 20 mg PO HS #90 tabs 08/17/23 08/29/23 Rx cyclobenzaprine 10 mg tablet 10 mg PO .COMPLEX PRN muscle spasm 08/24/23 08/29/23 Rx #90 tabs lidocaine 5 % topical patch 1 patch topical DAILY #3 ea 08/27/23 08/29/23 Rx (DermacinRx Lidocan) prednisone 20 mg tablet 40 mg (2 x 20 mg) PO DAILY 5 days 08/27/23 08/29/23 Rx #10 tabs oxycodone 5 mg tablet 5 mg PO Q6H PRN pain 08/29/23 08/29/23 History Past Med/Surg History Medical History (Updated 08/30/23 @ 09:26 by Thaddeus Medrano DO) Sacroiliac joint pain Muscle strain of left gluteal region Degloving injury Sciatica of right side Hypertension Surgical History S/P trigger finger release H/O arthroscopy of right knee S/P wisdom tooth extraction History of surgery also has history of arm incision Family History Grandmother Cardiovascular disorder Heart disease Grandfather Cardiovascular disorder Heart disease Sister Heart disease Brother Prostate cancer Denies family history of Ovarian cancer Myocardial infarction Breast cancer Colorectal cancer Social History Smoking Status: Former smoker Tobacco Type: Cigarettes Age Started Using Tobacco: 19; Age Quit Using Tobacco: 54; packs per day: 1; Cigarettes Per Day: pt states he quites on and off again but has not smoked since; Second Hand Exposure: No; Do You Dip or Chew Tobacco: No; Hx Alcohol Use: Yes Alcohol type: beer and wine Hx Substance Use: No Preferred Language: Romanian Communication Ability: Effective Visual Impairment: No Limitations Hearing Ability: Normal Cloth Bleaching Range Back Tender Required: No Beliefs That Will Affect Care: None marital status: Current Living Situation: Spouse current occupational status: employed Feels Safe at Home: Yes Safety Concerns: Feels Safe At This Time Childhood Exposure to Second-Hand Smoke: Yes Diet: other Diet Comment: brand diet Dental Care, Regularly: Yes Physical Activity Frequency: 3-4 Times per Week Seatbelt Use: always Sunscreen Use: Yes Assistive Devices: Glasses Physical Exam Physical Exam: On exam he is currently lying in bed. He has reasonable plantarflexion dorsiflexion quadriceps. Sensation to cold and light touch is intact lower extremities. Deep and reflexes diminished. He does demonstrate buckling of the lower extremities with ambulation and using a walker. He has no abnormal skin markings to lumbar spine. Results & Data Results & Data Vital Signs (Past 12 Hours) Vital Signs Temp Pulse Resp BP Pulse Ox O2 Del Method 08/30/23 07:09 36.4 C L 74 16 158/94 H 98 Room Air 08/29/23 22:46 36.6 C 79 18 130/76 96 Room Air Code Status & VTE Plan VTE Prophylaxis Plan VTE Prophylaxis will be ordered: Yes
--- NOTE | 2023-08-30 10:42 | Hospitalist Consultation ---
Date of Consultation August 30, 2023 Assessment & Plan (1) Neurogenic claudication due to lumbar spinal stenosis: Admitted under orthospine service Plan is to take him to the OR today or tomorrow, per Dr. Medrano Ordered lidocaine patch Noted that Dilaudid, oxycodone have been ordered by orthospine (2) Lumbar canal stenosis: Please see problem #1 (3) Hypertension: Patient says that he has been taken off of his blood pressure medication as h is blood pressure has been under control Will monitor his blood pressure while in the hospital His blood pressure is mildly elevated currently possibly related to pain (4) Hypercholesteremia: Continue Lipitor (5) Herpes simplex type 1 infection: Patient takes Valtrex on an as-needed basis for labial HSV 1 (6) BPH w urinary obs/LUTS: Continue Flomax and Proscar History of Present Illness Reason for Consultation: medical management Requesting Physician: Thaddeus Medrano Attending Physician: Thaddeus Medrano, DO History of Present Illness This is a 62-year-old male who has been dealing with lower back pain for several months. he has been seeing his PCP and has had manipulations and physical therapy. On 08/25, the patient woke up to severe pain without any known injury. He had seen his PCP who did a manipulation and gave him an IM injection of methylprednisolone. The pain nearly resolved but returned. He then came to the emergency room on 08/27. He had an MRI of the lumbar spine done that showed severe central canal stenosis. Dr. Medrano was contacted from [email or web address] emergency room. He was offered pain medications and oral prednisone and was discharged from the emergency room. He was asked to come back to the emergency room if his pain did not subside. He thus presented back to the emergency room yesterday on 08/29 due to intractable pain. He denies any fever, loss of bowel or bladder habits, tingling or numbness.. His pain radiates down to his groin. The patient denies any chest pain, shortness of breath, dizziness, fever. He denies any exertional chest pain or shortness of breath. Past medical history 1. Hyperlipidemia 2. BPH Allergies Allergy/AdvReac Type Severity Reaction Status Date / Time No Known Allergies Allergy Verified 08/24/23 11:38 Home Medications Medication Instructions Recorded Confirmed Type coenzyme Q10 100 mg capsule 200 mg PO QAM 03/19/20 08/29/23 History valacyclovir 1 gram tablet 2,000 mg (2 x 1 gram) PO BID PRN 10/12/22 08/29/23 Rx herpes simplex, type 1 infection #60 tabs dutasteride 0.5 mg capsule 0.5 mg PO DAILY #30 caps 06/16/23 08/29/23 Rx (Avodart) tamsulosin 0.4 mg capsule 0.4 mg PO DAILY #30 caps 06/30/23 08/29/23 Rx marijuana card See Rx Instructions .Route .COMPLEX 08/02/23 08/29/23 History atorvastatin 20 mg tablet 20 mg PO HS #90 tabs 08/17/23 08/29/23 Rx cyclobenzaprine 10 mg tablet 10 mg PO .COMPLEX PRN muscle spasm 08/24/23 08/29/23 Rx #90 tabs lidocaine 5 % topical patch 1 patch topical DAILY #3 ea 08/27/23 08/29/23 Rx (DermacinRx Lidocan) prednisone 20 mg tablet 40 mg (2 x 20 mg) PO DAILY 5 days 08/27/23 08/29/23 Rx #10 tabs oxycodone 5 mg tablet 5 mg PO Q6H PRN pain 08/29/23 08/29/23 History Patient History Medical History Sacroiliac joint pain Muscle strain of left gluteal region Degloving injury Sciatica of right side Hypertension Surgical History S/P trigger finger release H/O arthroscopy of right knee S/P wisdom tooth extraction History of surgery also has history of arm incision Family History Grandmother Cardiovascular disorder Heart disease Grandfather Cardiovascular disorder Heart disease Sister Heart disease Brother Prostate cancer Denies family history of Ovarian cancer Myocardial infarction Breast cancer Colorectal cancer Social History Smoking Status: Former smoker Tobacco Type: Cigarettes Age Started Using Tobacco: 19; Age Quit Using Tobacco: 54; packs per day: 1; Cigarettes Per Day: pt states he quites on and off again but has not smoked since; Second Hand Exposure: No; Do You Dip or Chew Tobacco: No; Hx Alcohol Use: Yes Alcohol type: beer and wine Hx Substance Use: No Preferred Language: Guyanese Communication Ability: Effective Visual Impairment: No Limitations Hearing Ability: Normal Orthopedic Coder Required: No Beliefs That Will Affect Care: None marital status: Current Living Situation: Spouse current occupational status: employed Feels Safe at Home: Yes Safety Concerns: Feels Safe At This Time Childhood Exposure to Second-Hand Smoke: Yes Diet: other Diet Comment: brand diet Dental Care, Regularly: Yes Physical Activity Frequency: 3-4 Times per Week Seatbelt Use: always Sunscreen Use: Yes Assistive Devices: Glasses Review of Systems Review of Systems: All systems reviewed & are unremarkable except as noted in Subjective Physical Exam Physical Exam: General appearance: Awake, conversant, able to answer questions appropriately. AOx3. Pupils: Equally reactive to light and accommodation Neck: No masses, no thyromegaly Respiration: Clear to auscultation bilaterally. Normal effort Cardiovascular: S1-S2/regular rate and rhythm. No murmur, rubs or gallop. No edema. Abdomen: Soft, nontender, nondistended. No hepatosplenomegaly Musculoskeletal: No clubbing, no cyanosis, normal range of motion Skin: No rashes, no nodules Neuro exam: Cranial nerves intact, sensation grossly intact Psychiatric: Patient has good judgment and insight. AOx3. Mood and affect appear normal Lymphatics: No cervical or axillary lymphadenopathy noted Results & Data Results & Data Vital Signs (Past 12 Hours) Vital Signs Temp Pulse Resp BP Pulse Ox O2 Del Method 08/30/23 07:09 36.4 C L 74 16 158/94 H 98 Room Air 08/29/23 22:46 36.6 C 79 18 130/76 96 Room Air Laboratory Results Lab Results 08/29/23 Range/Units 17:10 WBC 8.22 (4.8-10.8) K/ul RBC 3.69 L (4.70-6.10) M/uL Hgb 13.1 L (14.0-18.0) g/dl Hct 35.5 L (42.0-52.0) % MCV 96.2 (80.0-100.0) fL MCH 35.5 H (25.0-34.0) pg MCHC 36.9 H (32.0-36.0) g/dL RDW Std Deviation 41.2 (36.4-46.3) fL RDW Coeff of Susi 11.7 (11.5-14.5) % Plt Count 237 (130-400) K/uL MPV 8.3 L (9.4-12.4) fL Immature Gran % (Auto) 0.7 % Neut % (Auto) 80.4 % Lymph % (Auto) 12.5 % Morrison % (Auto) 6.4 % Eos % (Auto) 0.0 % Baso % (Auto) 0.0 % Neut # (Auto) 6.60 H (1.40-6.50) K/uL Lymph # (Auto) 1.03 L (1.20-3.40) K/uL Morrison # (Auto) 0.53 (0.11-0.59) K/uL Eos # (Auto) 0.00 (0.00-0.50) K/uL Baso # (Auto) 0.00 (0.00-0.20) K/uL Immature Gran # (Auto) 0.06 (0.01-0.20) K/uL Sodium 128 L (136-145) mmol/L Potassium 4.3 (3.5-5.1) mmol/L Chloride 95 L (98-107) mmol/L Carbon Dioxide 27 (21-32) mmol/L Anion Gap 6 (3-11) BUN 19 (6-23) mg/dl Creatinine 0.75 (0.6-1.4) mg/dl Est Cr Clr Drug Dosing 97.3 ml/min Est GFR ( Amer) 114.8 ml/min Est GFR (Non-Af Amer) 99.0 ml/min BUN/Creatinine Ratio 25.3 H (10-20) Glucose 112 H (70-99(Fasting)) mg/dl Calcium 9.3 (8.6-10.3) mg/dl Total Bilirubin 0.6 (0.2-1.0) mg/dl AST 17 (13-39) U/L ALT 19 (7-52) U/L Alkaline Phosphatase 56 (34-104) U/L Total Protein 6.6 (6.0-8.3) gm/dl Albumin 4.4 (3.4-5.0) gm/dl Globulin 2.2 L (2.5-4.0) gm/dl Albumin/Globulin Ratio 2.0 (0.9-2) Diagnostic Findings Chest X-Ray 08/29/23 17:00 XR chest 2V PA/lateral CLINICAL HISTORY: preop TECHNIQUE: 2 views of the chest were obtained. Comparison: None available at the time of this dictation. FINDINGS: No lines and tubes are seen. The cardiomediastinal silhouette is normal. The lungs are clear. No evidence of pleural effusion or pneumothorax. IMPRESSION: No acute chest disease. ACT 112: Negative or not required by law. Electronically signed by: Dirk Tellez M.D. 08/29/2023 5:47 PM PG Care Time/CCT Total # of Minutes Spent Total Time Spent with Patient: Total time spent is greater than 50% in coordination of care (as documented) at patient's floor/unit and/or counseling patient: Coding Level of Care Code 92325 IN/OBS CONSULT LVL 3,45M Diagnoses Neurogenic claudication due to lumbar spinal stenosis M48.062 Lumbar canal stenosis M48.061 Hypertension I10 Hypercholesteremia E78.00 Herpes simplex type 1 infection B00.9 BPH w urinary obs/LUTS N40.1; N13.8
[2023-08-30] MEDS ORDERED: ONDANSETRON INJ 2 MG/ML 2 ML VIAL ONE (12:43)
[2023-08-30] MEDS ORDERED: PROPOFOL IV EMULSION 10 MG/ML 20 ML VIAL IV ONE (12:43)
[2023-08-30] MEDS ORDERED: DEXAMETHASONE SOD INJ 4 MG/ML VIAL ONE (12:43)
[2023-08-30] MEDS ORDERED: LIDOCAINE 2% 2 ML VIAL/AMP(20MG/ML) INFIL ONE (12:43)
[2023-08-30] MEDS ORDERED: ROCURONIUM BROMIDE 10 MG/ML 5 ML VIAL IV ONE ×3 (12:43→16:15)
[2023-08-30] MEDS ORDERED: MIDAZOLAM HCL 1 MG/ML 2ML VIAL ONE (12:44)
[2023-08-30] MEDS ORDERED: SUGAMMADEX SODIUM 200 MG/2 ML VIAL IV ONE (12:44)
[2023-08-30] MEDS ORDERED: fentaNYL citrate PF 100 MCG/2 ML VIAL ONE ×2 (12:44→16:12)
[2023-08-30] MEDS ORDERED: ATROPINE SULFATE 0.1 MG/ML 10ML SYR IV PRN (13:16)
[2023-08-30] MEDS ORDERED: ePHEDrine sulfate 50 MG/ML AMP IV PRN (13:16)
[2023-08-30] MEDS ORDERED: HYDROmorphone INJ 1 MG/ML SYRINGE IV PRN ×2 (13:16→18:26)
[2023-08-30] MEDS ORDERED: fentaNYL citrate PF 100 MCG/2 ML VIAL IV PRN (13:16)
[2023-08-30] MEDS ORDERED: ONDANSETRON INJ 2 MG/ML 2 ML VIAL IV PRN ×2 (13:16→18:26)
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
--- NOTE | 2023-08-30 14:03 | History & Physical Bridge Note ---
Date of Service August 30, 2023 History & Physical Bridge Note I have examined the patient, reviewed the History & Physical and in the interval since the performance of the History & Physical I have noted the following changes of clinical significance: no changes noted Emergent lumbar decompression and fusion L3-L5.
[2023-08-30] MEDS ORDERED: ceFAZolin 330 MG/ML 1 GM VIAL ONE (14:19)
[2023-08-30] MEDS ORDERED: BUPIVACAINE/EPINEPHRINE 0.25% 1:200,000 30 ML VIAL ONE (14:20)
[2023-08-30] MEDS ORDERED: FLOSEAL HEMOSTATIC MATRIX 10ML TOP ONE (16:39)
--- NOTE | 2023-08-30 16:53 | Operative Report ---
Post Operative Report Pre & Post Diagnosis Operation Date: 08/30/23 14:30 <No data on this case meets the specified criteria> Preoperative diagnosis Lumbar spinal stenosis with neurogenic claudication and progressive neurologic deficit Postoperative diagnosis Same I identified the patient and participated in the time-out.: Yes Procedure Operation Date: 08/30/23 14:30 #1 lumbar decompression bilateral medial facetectomies and foraminotomies L3-L4 L4-5. #2 posterior spinal fusion L3-L4 L4-5. #3 placed posterior instrumentation L3-L5. #4 interbody fusion L3-L4 L4-L5 #5 placement Spira 11 x 26 mm at L3-L4 and 13 x 26 mm x 2 at L4-5. #6 placement locally harvested morselized autograft in the posterior gutters. #7 placement of I factor in the interbody space and infuse collagen sponge, mass graft in the posterior lateral gutters. Surgeon Thaddeus Medrano, Clinical Data Management Manager Maggie Omalley Estimated Blood Loss 300 Findings Consistent with Post-Op Diagnosis Specimens None Indications This is a 62-year-old male who presents with marked decline in status. Patient had both marked inability to ambulate secondary to leg weakness and pain as well as progressive urinary retention. Subsequently is here for emergent decompression and fusion. Description of Procedure Patient was met with identified informed consent obtained. Patient was then taken to the operative suite underwent patient placed in a prone position on the Yair table on top of the Justen frame. All bony promises well-padded eyes inspected to ensure no external pressure placed upon the. This point the lumbar spine was prepped and draped in normal sterile fashion. Sharp dissection with the assistance of Bovie cautery performed down to and exposing the lamina and transverse processes of L3-L4 and L5 bilaterally. Healy cephalad fashion complete laminectomy of L4 and L3 was performed including bilateral medial facetectomies and foraminotomies addressing severe spinal stenosis with notable foraminal stenosis far lateral disc protrusion L3-L4 on the left as well as a massive facet cyst at the L4-5 level adhered to the dura and nerve roots. After complete decompression pedicle screws were placed in L3 L4-5 bilaterally with assistance of fluoroscopy and properly sized eduardo placed. By way of transforaminal approach on the right a discectomy of L4-L5 was performed endplates curetted to subcortical bleeding bone and a 13 x 26 mm Spira cage with I factor tapped in position. Then proceeded to the left transforaminal region and by way of a transforaminal approach discectomy was performed at L4-L5 endplates again curetted to subcortical bleeding bone and a second 13 x 26 mm Spira cage with I factor tapped in position. Then proceeded to L3-L4 and again by a transforaminal approach on the left and discectomy was performed endplates guided to subcortical bleeding bone and a 11 x 26 mm Spira cage with I factor tapped in position. The rods were then locked in final position bilaterally. The transverse processes of L3 L4-5 burred to subcortical bleeding bone. Infuse collagen sponge combined with master graft and local autograft placed in the posterior lateral gutters. 15 round GODFREY drain inserted. The incision was then closed with 1 Vicryl to fascia 2-0 Vicryl subcutaneously and 4 Monocryl for final skin closure. Steri-Strips sterile dressing placed. Patient awakened taken PACU stable condition. Please note spinal cord monitoring was utilized at the procedure no changes noted. Lastly Maggie Omalley was present at the entire mohamud rgeon while the patient positioning complex portions of the surgery and final skin closure. I attest to the content of the Intraoperative Record and any orders documented therein. Any exceptions are noted below.
--- NOTE | 2023-08-30 17:52 | Anesthesiology Progress Note ---
Date of Service August 30, 2023 Anesthesia Post Procedure Vital Signs Vital Signs: Temp Pulse Pulse Resp BP BP Pulse Ox 08/30/23 17:35 36.6 C 63 11 L 142/87 H 99 08/30/23 17:25 65 11 L 133/87 100 08/30/23 17:15 65 15 161/94 H 100 08/30/23 17:06 36.0 C L 71 12 180/99 H 100 08/30/23 13:03 36.6 C 70 20 158/96 H 99 08/30/23 07:09 36.4 C L 74 16 158/94 H 98 08/29/23 22:46 36.6 C 79 18 130/76 96 08/29/23 19:52 O2 Del Method O2 Flow Rate 08/30/23 17:35 Room Air 08/30/23 17:25 Oxymask 3 08/30/23 17:15 Oxymask 5 08/30/23 17:06 Oxymask 7 08/30/23 13:03 Room Air 08/30/23 07:09 Room Air 08/29/23 22:46 Room Air 08/29/23 19:52 Room Air Pain Intensity Back: Pain Intensity: 0 Transfer of Care Handoff Completed per policy Notes Mental Status: alert / awake / arousable and participated in evaluation Patient Amnestic to Procedure: Yes Nausea / Vomiting: adequately controlled Pain: adequately controlled Airway Patency, RR, SpO2: stable & adequate BP & HR: stable & adequate Hydration State: stable & adequate Anesthetic Complications: no major complications apparent
--- NOTE | 2023-08-30 17:59 | Fluoroscopy Report ---
INTRAOPERATIVE RADIOGRAPHS CLINICAL HISTORY: Lumbar spinal fusion surgery. Fluoro time: 21 seconds Ka,r: 10.22 mGy FINDINGS: 2 spot fluoroscopic views of the lumbar spine are presented. There has been discectomy at L 3-L4 and L4-L5 with laminectomy and posterior fusion at L3-L5. Interpedicular screws are in place. Th e orthopedic hardware appears intact. IMPRESSION: Intraoperative images from lumbar spinal fusion surgery as above. Electronically signed by: Pee Todd M.D. 08/30/2023 5:57 PM
[2023-08-30] MEDS ORDERED: diphenhydrAMINE Capsule 25 MG CAP PO PRN (18:26)
[2023-08-30] MEDS ORDERED: PROMETHAZINE HCL 12.5 MG in SODIUM CHLORIDE 0.9% 50 ML IV PRN (18:26)
[2023-08-30] MEDS ORDERED: ONDANSETRON 4 MG OD TAB PO PRN (18:26)
[2023-08-30] MEDS ORDERED: MAGNESIUM HYDROXIDE SUSP 30 ML UDC PO PRN (18:26)
[2023-08-30] MEDS ORDERED: ACETAMINOPHEN 1,000 MG/100 ML VIAL IV PRN (18:26)
[2023-08-30] MEDS ORDERED: METOCLOPRAMIDE HCL INJ 5 MG/ML 2 ML VIAL IV PRN (18:26)
[2023-08-30] MEDS ORDERED: FAMOTIDINE 20 MG TAB PO PRN (18:26)
[2023-08-30] MEDS ORDERED: DO NOT ADMINISTER FLU VACCINE PRN (18:26)
[2023-08-30] MEDS ORDERED: hydrOXYzine HCl 25 MG TAB PO PRN (18:26)
[2023-08-30] MEDS ORDERED: ALUMINUM/MAGNESIUM SUSP 30 ML UDC PO PRN (18:26)
[2023-08-30] MEDS ORDERED: DO NOT ADMINISTER PNEUMOCOCCAL VACCINE PRN (18:26)
[2023-08-30] MEDS ORDERED: LORazepam 0.5 MG in SYRINGE 0.25 ML IV PRN (18:26)
[2023-08-30] MEDS ORDERED: SOD PHOSPHATE/SOD BIPHOSPHATE ENEMA 132 ML BTL PR PRN (18:26)
[2023-08-30] MEDS ORDERED: ACETAMINOPHEN 500 MG TAB PO PRN (18:26)
[2023-08-30] MEDS ORDERED: NALOXONE HCL 0.4 MG/1 ML VIAL/CARP IV PRN (18:26)
[2023-08-30] MEDS ORDERED: bisacodyL 10 MG SUPP PR PRN (18:26)
[2023-08-30] MEDS: DOCUSATE SODIUM/SENNA 50/8.6MG TAB PO SCH (20:56)
[2023-08-30] MEDS: ceFAZolin 2000MG 2,000 MG/15 ML SYR IV SCH (22:54)
[2023-08-31] MEDS: LACTATED RINGER'S 1,000 ML IV SCH (01:08)
[2023-08-31] MEDS: traMADol HCL 50 MG TABLET PO PRN ×2 (01:11→19:48)
[2023-08-31] MEDS: oxyCODONE HCL IR 5 MG TAB (IMMEDIATE RELEASE) PO PRN ×4 (05:36→21:48)
[2023-08-31] MEDS: POLYETHYLENE (MIRALAX) 17 GM PACK PO SCH ×4 (05:37→23:39)
[2023-08-31] MEDS: ceFAZolin 2000MG 2,000 MG/15 ML SYR IV SCH (06:22)
[2023-08-31 06:27] LABS: Basophils # (auto) 0.02 K/uL (0.00-0.20); Basophils % (auto) 0.1 %; Eosinophils # (auto) 0.02 K/uL (0.00-0.50); Eosinophils % (auto) 0.1 %; Hematocrit (blood only) 32.8 % (42.0-52.0); Immature Granulocytes # (auto) 0.12 K/uL (0.01-0.20); Immature Granulocytes % (auto) 0.9 %; Lymphocytes # (auto) 1.78 K/uL (1.20-3.40); Lymphocytes % (auto) 12.8 %; Mean Corpuscular Hemoglobin 35.9 pg (25.0-34.0); Mean Corpuscular Hgb Conc 36.6 g/dL (32.0-36.0); Mean Corpuscular Volume 98.2 fL (80.0-100.0); Mean Platelet Volume 8.4 fL (9.4-12.4); Monocytes # (auto) 1.17 K/uL (0.11-0.59); Monocytes % (auto) 8.4 %; Neutrophils # (auto) 10.81 K/uL (1.40-6.50); Neutrophils % (auto) 77.7 %; Platelet Count 277 K/uL (130-400); RDW Coefficient of Variation 11.7 % (11.5-14.5); RDW Standard Deviation 42.3 fL (36.4-46.3); Red Blood Count 3.34 M/uL (4.70-6.10); White Blood Count 13.92 K/ul (4.8-10.8)
[2023-08-31] MEDS: LORazepam 0.5 MG TAB PO PRN ×3 (06:27→22:12)
[2023-08-31 07:03] LABS: BUN Creatinine Ratio 20.3 (10-20); Calcium 9.1 mg/dl (8.6-10.3); Creatinine Clr Calc Pharmacy 105.1 ml/min; Est GFR (African American) 118.8 ml/min; Est GFR (Non-African American) 102.5 ml/min; Potassium 4.3 mmol/L (3.5-5.1)
[2023-08-31] MEDS: dexAMETHasone 6 MG in SYRINGE 0 ML IV SCH (07:46)
[2023-08-31] MEDS: ATORVASTATIN 20 MG TAB PO SCH (07:47)
[2023-08-31] MEDS: FINASTERIDE 5 MG TAB PO SCH (07:47)
[2023-08-31] MEDS: TAMSULOSIN HCL 0.4 MG CAP PO SCH (07:47)
--- NOTE | 2023-08-31 12:30 | Orthopedic Progress Note ---
Date of Service August 31, 2023 Assessment & Plan (1) Neurogenic claudication due to lumbar spinal stenosis: Plan: At this time continue physical therapy monitor GODFREY output hopefully discharge home in the next few days. Admission and Anticipated Discharge Date Admission Date: August 29, 2023 Subjective Patient's back pain is controlled leg pain markedly improved. Physical Exam Physical Exam: Patient is ambulating halls. He is doing so without his walker today. His leg strength is markedly improved. Results & Data Vital Signs (Past 12 Hours) Vital Signs Temp Pulse Resp BP BP Pulse Ox O2 Del Method 08/31/23 07:25 36.6 C 77 16 124/72 97 Room Air 08/31/23 03:26 36.8 C 67 16 127/73 97 Room Air
--- NOTE | 2023-08-31 15:55 | Hospitalist Progress Note ---
Date of Service August 31, 2023 Assessment & Plan (1) Neurogenic claudication due to lumbar spinal stenosis: Plan: Admitted under orthospine service status post decompression and fusion 08/30 pain management and disposition per primary team (2) Lumbar canal stenosis: Plan: Please see problem #1 (3) Hypertension: Plan: Patient says that he has been taken off of his blood pressure medication as his blood pressure has been under control Will monitor his blood pressure while in the hospital blood pressure stable now (4) Hypercholesteremia: Plan: Continue Lipitor (5) Herpes simplex type 1 infection: Plan: Patient takes Valtrex on an as-needed basis for labial HSV 1 (6) BPH w urinary obs/LUTS: Plan: Continue Flomax and Proscar Admission and Anticipated Discharge Date Admission Date: August 29, 2023 Subjective Patient feels well. Feeling much better postsurgery. Review of Systems Review of Systems: All systems reviewed & are unremarkable except as noted in Subjective Physical Exam Physical Exam: General: Awake, conversant Heart: S1, S2/regular rate and rhythm, no murmur rubs or gallops Lungs: Clear to auscultation bilaterally. Normal effort Abdomen: Soft/nontender/nondistended. No hepatosplenomegaly Extremities: No clubbing/cyanosis. No edema Behavior: Appropriate, cooperative Results & Data Results & Data Vital Signs (Past 12 Hours) Vital Signs Temp Pulse Resp BP Pulse Ox O2 Del Method 08/31/23 14:33 36.6 C 77 16 108/71 99 Room Air 08/31/23 12:32 36.7 C 82 16 118/78 96 Room Air 08/31/23 07:25 36.6 C 77 16 124/72 97 Room Air PG Care Time/CCT Total # of Minutes Spent Total Time Spent with Patient: Total time spent is greater than 50% in coordination of care (as documented) at patient's floor/unit and/or counseling patient: Coding Level of Care Code 80311 SUB INP/OBS CARE 2/35MIN Diagnoses Neurogenic claudication due to lumbar spinal stenosis M48.062 Lumbar canal stenosis M48.061 Hypertension I10 Hypercholesteremia E78.00 Herpes simplex type 1 infection B00.9 BPH w urinary obs/LUTS N40.1; N13.8
--- NOTE | 2023-08-31 16:36 | Electrocardiogram Report ---
Test Reason : Blood Pressure : / mmHG Vent. Rate : 059 BPM Atrial Rate : 059 BPM P-R Int : 174 ms QRS Dur : 114 ms QT Int : 422 ms P-R-T Axes : 026 006 031 degrees QTc Int : 417 ms Sinus bradycardia Incomplete right bundle branch block Otherwise normal ECG When compared with ECG of 30-AUG-2018 09:28, No significant change was found Confirmed by Torey Maier ([id number]) on 08/31/2023 4:35:38 PM Referred By: REFERRED SELF Confirmed By:Franc Maier
[2023-08-31] MEDS: DOCUSATE SODIUM/SENNA 50/8.6MG TAB PO SCH (20:25)
[2023-09-01] MEDS: POLYETHYLENE (MIRALAX) 17 GM PACK PO SCH (07:35)
[2023-09-01] MEDS: oxyCODONE HCL IR 5 MG TAB (IMMEDIATE RELEASE) PO PRN ×2 (08:09→12:04)
[2023-09-01] MEDS: TAMSULOSIN HCL 0.4 MG CAP PO SCH (08:10)
[2023-09-01] MEDS: FINASTERIDE 5 MG TAB PO SCH (08:10)
[2023-09-01] MEDS: dexAMETHasone 6 MG in SYRINGE 0 ML IV SCH (08:10)
[2023-09-01] MEDS: ATORVASTATIN 20 MG TAB PO SCH (08:10)
[2023-09-01] MEDS: LORazepam 0.5 MG TAB PO PRN (09:14)
--- NOTE | 2023-09-01 09:17 | Discharge Summary ---
Date of Service September 01, 2023 Admission HPI Per Admitting Provider This is a 62-year-old male presents with a steady decline in status. He is now had to come to the emergency room on 2 occasions secondary to severe bilateral leg pain weakness and inability to ambulate. He is noting urinary retention. He does have a history of undergoing progressive difficulty over the past year. Is undergone physical therapy as well as several epidural injections without long standing relief. His decline has been dramatic over the past week. He has pain rating the buttocks posterior thigh into his calves. His legs buckle when he stands secondary to pain. He also notes the left groin pain with anterior thigh pain. Principal Diagnosis Lumbar spinal stenosis with neurogenic claudication and progressive neurologic decline Discharge Data Allergies Allergy/AdvReac Type Severity Reaction Status Date / Time No Known Allergies Allergy Verified 08/24/23 11:38 Consultations 08/29/23 13:17 ED Decision to Admit Stat 08/29/23 17:00 Consult Internal Medicine Routine Procedures Performed Operation Date: 08/30/23 14:30 <No data on this case meets the specified criteria> Ordered Studies 08/30/23 [place] lumbar spine 2-3V Routine Hospital Course (1) Neurogenic claudication due to lumbar spinal stenosis: Patient was admitted the hospital with extreme back by the leg pain and inability to ambulate. He had progressive neurologic deficit and underwent emergent decompression and fusion of lumbar spine. Tolerated this well was taken to the orthopedic floor postoperative. Postop day 1 is up and ambulating progressive postop day #2. Strength improved dramatically. Subsequently discharged home. Discharge orders instructions found in chart for further review. Total Time Total Time Spent Total Time Spent (In Minutes): 20 minutes Discharge Plan Discharge Items Patient Disposition: Home - Self-Care Reason For Visit: LEG WEAKNESS, SPINAL STENOSIS Discharge Diagnosis: Lumbar spinal stenosis with neurogenic claudication Activity: As commented below Non-emergency contact: Primary Care Provider Call non-emergency contact if: you have any medication questions Follow-up/Referrals: Francisco Flannery, [Primary Care Provider] - Diet: Regular Addtl Attending Provider Instructions: ACTIVITY RECOMMENDATIONS: SELF CARE INSTRUCTIONS AFTER THORACIC/LUMBAR FUSIONS 1. You may walk to your tolerance. It is good exercise for your legs and back. Expect some back and intermittent leg aches and pains. 2. You may perform "counter-top" level activities (make a sandwich, reginald with a project, etc.). 3. No bending or lifting of more than 10 pounds or back twisting of any nature (roll like a log when turning in bed). 4. You may ride in a car for 20-30 minutes at a time. No driving until after your first visit with your doctor. 5. Frequent changes of position and restricting sitting to 30 minutes at a time will help limit the amount of back spasms and stiffness you may experience. 6. You may discontinue the use of ambulatory aids (cane, crutches, etc.) once your strength and confidence allow. 7. You may marine engine machinist apprentice the shower and let water strike your incision when you arrive home at least once daily. Do not take a tub bath, sit in a hot tub or go into a swimming pool until after your first recheck in the office. SPECIAL CARE INSTRUCTIONS: VERY IMPORTANT TO READ AND REVIEW A. Your surgical incision has been closed with a cosmetic suture under the skin that will dissolve in about 6 weeks. In 14 days, you can use a pair of clean scissors and cut the suture that is left outside of the skin at the ends of your incision. 1. The small skin tapes can be removed 7 days after surgery if they have not fallen off by that point. 2. You may keep the wound open to air as much as possible to promote healing after post-op day number 5 unless told otherwise by your doctor. 3. If you think the wound looks like it is becoming infected (redness or worsening drainage) and/or you are experiencing fever, chill or worsening back pain and muscle spasms, contact the office so that we may evaluate you as soon as possible. B. Complications are uncommon, but please contact us if you have any signs or symptoms of: 1. wound infection (fever higher than 102.5 degrees F, redness, separation of wound, drainage, or increasing pain from the incision) 2. blood clots in legs (pain, swelling, redness and warmth in legs) 3. urinary tract infection (fever higher than 102.5 degrees F, burning upon urination or increased frequency of urination) 4. nerve problems (inability to walk on your toes or heels, numbness, loss of bowel or bladder control) 5. any other symptoms that concern you C. Please call the office at if you have any concerns or questions about your operation or recovery. D. No smoking! Smoking drastically decreases the chance of a solid fusion. E. Do not take any anti-inflammatory medications (Indocin, Advil, Motrin, Aspirin, Naprosyn, etc.) as these may inhibit the chance of a solid fusion. Tylenol is okay to take for pain. MANAGING PAIN AFTER SPINAL SURGERY 1. Narcotic medication is intended for short-term use and will be provided for surgical pain. Surgical pain usually lasts for a period of 4-6 weeks. Narcotic medication includes Percocet, Vicodin, Darvocet, Tylenol #3 or Lortab. 2. Longer-term pain is more appropriately treated with non-narcotic medication such as Tylenol ES. 3. Muscle spasm is not appropriately treated with narcotics. Muscle relaxers such as Soma, Flexeril or Skelaxin can be used along with Tylenol ES. 4. Remember that we all live with some "aches and pains". This is not unusual or uncommon after an injury or as we get older. a. Back pain is expected and may include muscle spasms for 4 to 6 weeks after surgery. The pain should gradually improve. If the pain worsens for no apparent reason, please contact the office. b. Intermittent leg pain may also be experienced and should not be concerned about unless it worsens for no apparent reason. If so, please contact the office. 5. We will provide appropriate medication within the normal guidelines of their prescribed use. We will also be very cautious and aware of potential abuse and extended duration of patients' medication needs. a. Pain medications are for your comfort and to assist with sleep and rest so that the tissue can heal. They are not provided in order to return to normal activity and should not be used through the day. To do so or worsening pain at night can result from ongoing tissue damage and development of tolerance to the prescribed medicine. 6. Please allow 2-3 days to process refills. Prescriptions will not be mailed but must be picked up at the office. FOLLOW UP VISIT: Keep your scheduled follow-up appointment. Any questions, please call the office at . Pending Studies at Discharge: No Stand-Alone Forms: My [employer], Smoking Cessation Medications and DC Order Prescriptions: New tramadol 50 mg tablet 50 mg PO Q6H PRN (Reason: pain, moderate) Qty: 30 0RF oxycodone 5 mg tablet 5 mg PO Q6H PRN (Reason: pain) Qty: 30 0RF Continued marijuana card See Rx Instructions .ROUTE .COMPLEX Rx Instructions: as directed valacyclovir 1 gram tablet 2,000 mg PO BID PRN (Reason: herpes simplex, type 1 infection) Qty: 60 5RF dutasteride [Avodart] 0.5 mg capsule 0.5 mg PO DAILY Qty: 30 11RF atorvastatin 20 mg tablet 20 mg PO HS Qty: 90 3RF tamsulosin 0.4 mg capsule 0.4 mg PO DAILY Qty: 30 11RF cyclobenzaprine 10 mg tablet 10 mg PO .COMPLEX PRN (Reason: muscle spasm) Qty: 90 0RF Rx Instructions: 10 mg orally PRN; coenzyme Q10 100 mg capsule 200 mg PO QAM oxycodone 5 mg tablet 5 mg PO Q6H PRN (Reason: pain) Rx Instructions: Take 1 tablets every 6 hours as needed for pain. lidocaine [DermacinRx Lidocan] 5 % adhesive patch,medicated 1 patch topical DAILY Qty: 3 0RF Rx Instructions: leave on most painful area for up to 12 hrs prednisone 20 mg tablet 40 mg PO DAILY 5 Days Qty: 10 0RF Discharge Orders: Discharge Order (Routine); Ordered 09/01/23 Ordered By: Thaddeus Medrano Admission Data Admit Date/Time: 08/29/23 13:15 Attending Provider: Thaddeus Medrano Admit Provider: Thaddeus Medrano Primary Care Provider: Francisco Flannery Other Providers: Mateo Lemus; Thaddeus Medrano; Syed Chatman
[2023-09-01] MEDS: traMADol HCL 50 MG TABLET PO PRN (11:10)
== END 2023-09-01 12:27 | disposition home or self-care (01) | DRG 455 ==
LOC: ED 12:03 → 3W 13:15 → 3E 08-30 18:25

== ENCOUNTER 2023-09-03 18:26 | Observation (INO) ==
[2023-09-03] MEDS ORDERED: ONDANSETRON INJ 2 MG/ML 2 ML VIAL IV STA (19:53)
--- NOTE | 2023-09-03 19:57 | Emergency Department Note ---
Impression & Plan Postoperative back pain ED Provider Note NAME: JOSE BELTRÁN AGE: 62 SEX: Male INFORMANT: Patient ED PROVIDER(S): Ernesto Boykin MD CHIEF COMPLAINT: Back PLAN: Disposition: Admitted Outpatient prescription management: none Referral: None MEDICAL DECISION MAKING: Patient presented because of postoperative back pain. He was treated with IV Dilaudid, Zofran, and Decadron. Blood work was obtained. He had no focal neurologic findings. Consultation was placed with Dr. Medrano of spine surgery. After review of the situation he did admit the patient for further management and pain control. Care/management discussed with: Discussed with cyber security manager Level of care consideration(s): After review of the information above and other included data, I feel the patient requires escalation of care to admission Triage Nursing notes: reviewed and agree them. Vital Signs: reviewed and remarkable for no significant abnormalities Additional History obtained from: Patient's regarding his at home care. Removal of the drain went uneventful. Chronic Medical/Social Conditions affecting care: none Prior/ Outside/ External records reviewed: none Differential Diagnosis: Back pain,Musculoskeletal, disc herniation, fracture, metastatic disease, cord compression, discitis, sciatica, cauda equina, infection, aortic disease, renal colic, gastrointestinal, as well as other pathologies. Diagnostics, independently interpreted by me: ECG: none Cardiac Monitoring: none Medical decision rules: none Imaging studies: Deferred HPI: 62 year old Ma severe back pain. Patient had back surgery on the by Dr. Medrano. He states he was doing well at home. He has le arrives for evaluation of noted having some back pain developed last night and it worsened throughout the night. He notes severe 10 out of 10 pain. He notes that radiates somewhat from the lumbar region towards the buttocks bilaterally but not down into the legs. He has no loss of bowel or bladder control. Patient denies any fever. He did feel kind of sweaty when the pain was severe. He did try his tramadol and oxycodone without results. Pt denies LOC, headache, fevers, chills, visual changes, neck pain, chest pain, breathing difficulties, nausea, vomiting, abdominal pain, back pain, melena, hematochezia, urinary symptoms, numbness, weakness, lymphadenopathy, rash, or other complaints.. . PAST MEDICAL HISTORY: See Below, hypertension PAST SURGICAL HISTORY: See Below, SOCIAL HISTORY: See Below, HOME MEDICATIONS: See Below ALLERGIES: See Below VITALS: See Below PHYSICAL EXAMINATION: GENERAL: Awake, alert, uncomfortable-appearing, in no distress HENT: Normocephalic, atraumatic. Oropharynx unremarkable. EYES: Normal conjunctiva. Sclera non-icteric. NECK: Inspection normal. Non-tender. Supple. No nuchal rigidity. FROM. No masses. RESPIRATORY: Clear to auscultation. No wheezes. No rales. Normal respiratory effort. CARDIAC: Normal rate. Normal rhythm. No murmurs. No rubs. Extremities warm and well perfused. Pulses equal. No JVD. GI: Soft, non-distended. No tenderness to palpation. No rebound or guarding. No masses. RECTAL: Deferred. MUSCULOSKELETAL: Atraumatic. Chest examination reveals no tenderness. The back is symmetrical on inspection. Incision is clean dry and intact. No significant erythema or swelling. No dehiscence. No joint edema. LOWER EXTREMITIES: Calves are equal size bilaterally and non-tender. No edema. No discoloration. NEURO: Normal sensorium. No sensory or motor deficits noted. No saddle anesthesia SKIN: No rash or jaundice noted. PROCEDURES: none CRITICAL CARE: none OBSERVATION NOTE: none Past Med/Surg History Medical History Sacroiliac joint pain Muscle strain of left gluteal region Degloving injury Sciatica of right side Hypertension Surgical History S/P trigger finger release H/O arthroscopy of right knee S/P wisdom tooth extraction History of surgery also has history of arm incision Family History Grandmother Cardiovascular disorder Heart disease Grandfather Cardiovascular disorder Heart disease Sister Heart disease Brother Prostate cancer Denies family history of Ovarian cancer Myocardial infarction Breast cancer Colorectal cancer Social History Smoking Status: Former smoker Tobacco Type: Cigarettes Age Started Using Tobacco: 19; Age Quit Using Tobacco: 54; packs per day: 1; Cigarettes Per Day: pt states he quites on and off again but has not smoked since; Second Hand Exposure: No; Do You Dip or Chew Tobacco: No; Hx Alcohol Use: Yes Alcohol type: beer and wine Hx Substance Use: No Preferred Language: Portuguese Communication Ability: Effective Visual Impairment: No Limitations Hearing Ability: Normal Tele Marketing Executive Required: No Beliefs That Will Affect Care: None marital status: Current Living Situation: Spouse current occupational status: employed Feels Safe at Home: Yes Safety Concerns: Feels Safe At This Time Childhood Exposure to Second-Hand Smoke: Yes Diet: other Diet Comment: brand diet Dental Care, Regularly: Yes Physical Activity Frequency: 3-4 Times per Week Seatbelt Use: always Sunscreen Use: Yes Assistive Devices: Walker Allergies Allergies Allergy/AdvReac Type Severity Reaction Status Date / Time No Known Allergies Allergy Verified 09/03/23 19:54 Home Meds Home Medications Medication Instructions Recorded Confirmed coenzyme Q10 100 mg capsule 200 mg PO QAM 03/19/20 09/03/23 Marijuana Vape 1 puff inhalation DAILY PRN Pain 09/03/23 09/03/23 Previous Rx's Medication Instructions Recorded valacyclovir 1 gram tablet 2,000 mg (2 x 1 gram) PO BID PRN 10/12/22 herpes simplex, type 1 infection #60 tabs dutasteride 0.5 mg capsule 0.5 mg PO DAILY #30 caps 06/16/23 (Avodart) tamsulosin 0.4 mg capsule 0.4 mg PO DAILY #30 caps 06/30/23 atorvastatin 20 mg tablet 20 mg PO HS #90 tabs 08/17/23 cyclobenzaprine 10 mg tablet 10 mg PO .COMPLEX PRN muscle spasm 08/24/23 #90 tabs oxycodone 5 mg tablet 5 mg PO Q6H PRN pain #30 tabs 08/31/23 tramadol 50 mg tablet 50 mg PO Q6H PRN pain, moderate 08/31/23 #30 tabs Results & Data (ED) Vital Signs Vital Signs - 24 hr 09/03/23 18:38 09/03/23 18:50 09/03/23 19:24 Temperature 36.8 C Temperature Source Oral Pulse Rate 80 78 Pulse Rate [Apical] 74 Pulse Rhythm [Apical] Regular Pulse Strength [Apical] Normal Respiratory Rate 24 22 Respiratory Effort / Characteristics Non-Labored Respiratory Depth Normal Normal Blood Pressure 134/78 Blood Pressure [Right Arm] 128/78 Blood Pressure Mean 96 Blood Pressure Mean [Right Arm] 94 Blood Pressure Position [Right Arm] Lying Pulse Oximetry 95 94 Oxygen Delivery Method Room Air Room Air Sepsis Recent Fever Within 48 Hours No Sepsis New/Unexplained Change in Mental Status N/A Sepsis Action Taken by Nursing No Action Required Laboratory Data 09/03/23 20:23 09/03/23 20:23 Administered Medications Atorvastatin Calcium (Atorvastatin 20 Mg Tab) 20 mg PO HS ALEXEI Stop: 10/03/23 21:43 Last Admin: 09/03/23 22:01 Dose: 20 mg Documented By: MIGUEL ANGEL Hydromorphone HCl (Hydromorphone Inj 1 Mg/Ml Syringe) 1 mg IV Q3H PRN PRN Reason: severe pain (scale 7-10) Stop: 09/17/23 21:43 Last Admin: 09/03/23 22:01 Dose: 1 mg Documented By: MIGUEL ANGEL Lactated Ringer's (Lr) 1,000 mls @ 75 mls/hr IV .[id number] [facility] Stop: 10/03/23 21:43 Last Admin: 09/03/23 22:01 Dose: 75 mls/hr Documented By: MIGUEL ANGEL Ketorolac Tromethamine (Ketorolac 30 Mg/Ml Vial) 30 mg IV Q6H PRN PRN Reason: Pain Stop: 09/08/23 21:43 Last Admin: 09/04/23 00:54 Dose: 30 mg Documented By: MIGUEL ANGEL Discontinued Medications Dexamethasone Sodium Phosphate (DexamethasonePf 10 Mg/Ml Vial) 10 mg IV NOW ONE Stop: 09/03/23 20:01 Last Admin: 09/03/23 20:20 Dose: 10 mg Documented By: HOWARD Hydromorphone HCl (Hydromorphone Inj 0.5 Mg/0.5 Ml Syr) 0.5 mg IV Q15M PRN PRN Reason: Pain Stop: 09/17/23 19:52 Last Admin: 09/03/23 20:58 Dose: 0.5 mg Documented By: Admin: 09/03/23 20:20 Dose: 0.5 mg Documented By: HOWARD Ondansetron HCl (Ondansetron Inj 2 Mg/Ml 2 Ml Vial) 4 mg IV NOW STA Stop: 09/03/23 19:54 Last Admin: 09/03/23 20:20 Dose: 4 mg Documented By: MMG Discharge Plan Visit Data Chief Complaint: Leg Injury/Pain Stated Complaint: LEG PAIN ED Provider: Ernesto Boykin Discharge Problem: Postoperative back pain Patient Disposition: Admitted As Inpatient Discharge Instructions Interventions: ED Discharge Assessment Last Done: 09/03/23 21:18
[2023-09-03] MEDS ORDERED: dexAMETHasone**PF** 10 MG/ML VIAL IV ONE (20:00)
[2023-09-03] MEDS: HYDROmorphone INJ 0.5 MG/0.5 ML SYR IV PRN ×2 (20:20→20:58)
[2023-09-03 20:45] LABS: Basophils # (auto) 0.02 K/uL (0.00-0.20); Basophils % (auto) 0.2 %; Eosinophils # (auto) 0.04 K/uL (0.00-0.50); Eosinophils % (auto) 0.4 %; Hematocrit (blood only) 26.9 % (42.0-52.0); Immature Granulocytes # (auto) 0.09 K/uL (0.01-0.20); Lymphocytes # (auto) 0.67 K/uL (1.20-3.40); Lymphocytes % (auto) 7.1 %; Mean Corpuscular Hemoglobin 35.5 pg (25.0-34.0); Mean Corpuscular Hgb Conc 37.2 g/dL (32.0-36.0); Mean Corpuscular Volume 95.4 fL (80.0-100.0); Mean Platelet Volume 8.6 fL (9.4-12.4); Monocytes # (auto) 0.61 K/uL (0.11-0.59); Monocytes % (auto) 6.5 %; Neutrophils # (auto) 8.01 K/uL (1.40-6.50); Neutrophils % (auto) 84.8 %; Platelet Count 220 K/uL (130-400); RDW Coefficient of Variation 11.6 % (11.5-14.5); RDW Standard Deviation 40.6 fL (36.4-46.3); Red Blood Count 2.82 M/uL (4.70-6.10); White Blood Count 9.44 K/ul (4.8-10.8)
[2023-09-03 21:04] LABS: Albumin Globulin Ratio 1.5 (0.9-2); Albumin Level 3.5 gm/dl (3.4-5.0); BUN Creatinine Ratio 14.8 (10-20); Bilirubin,Total 0.7 mg/dl (0.2-1.0); Calcium 8.8 mg/dl (8.6-10.3); Creatinine Clr Calc Pharmacy 129.2 ml/min; Est GFR (African American) 124.9 ml/min; Est GFR (Non-African American) 107.8 ml/min; Globulin 2.3 gm/dl (2.5-4.0); Potassium 4.1 mmol/L (3.5-5.1); Total Protein 5.8 gm/dl (6.0-8.3)
[2023-09-03] MEDS ORDERED: METOCLOPRAMIDE HCL INJ 5 MG/ML 2 ML VIAL IV PRN (21:44)
[2023-09-03] MEDS ORDERED: LACTATED RINGER'S 1,000 ML IV SCH (21:44)
[2023-09-03] MEDS ORDERED: ACETAMINOPHEN 1,000 MG/100 ML VIAL IV PRN (21:44)
[2023-09-03] MEDS ORDERED: traMADol HCL 50 MG TABLET PO PRN (21:44)
[2023-09-03] MEDS ORDERED: NALOXONE HCL 0.4 MG/1 ML VIAL/CARP IV PRN (21:44)
[2023-09-03] MEDS ORDERED: MAGNESIUM HYDROXIDE SUSP 30 ML UDC PO PRN (21:44)
[2023-09-03] MEDS ORDERED: ACETAMINOPHEN 500 MG TAB PO PRN (21:44)
[2023-09-03] MEDS ORDERED: HYDROmorphone INJ 0.5 MG/0.5 ML SYR IV PRN (21:44)
[2023-09-03] MEDS ORDERED: ONDANSETRON 4 MG OD TAB PO PRN (21:44)
[2023-09-03] MEDS ORDERED: ONDANSETRON INJ 2 MG/ML 2 ML VIAL IV PRN (21:44)
[2023-09-03] MEDS ORDERED: ALUMINUM/MAGNESIUM SUSP 30 ML UDC PO PRN (21:44)
[2023-09-03] MEDS ORDERED: PROMETHAZINE HCL 12.5 MG in SODIUM CHLORIDE 0.9% 50 ML IV PRN (21:44)
[2023-09-03] MEDS: ATORVASTATIN 20 MG TAB PO SCH (22:01)
[2023-09-03] MEDS: HYDROmorphone INJ 1 MG/ML SYRINGE IV PRN (22:01)
[2023-09-04] MEDS: KETOROLAC 30 MG/ML VIAL IV PRN ×2 (00:54→21:32)
[2023-09-04] MEDS: dexAMETHasone 8 MG in SYRINGE 0 ML IV SCH ×3 (04:55→20:18)
[2023-09-04] MEDS: SODIUM CHLORIDE 0.9% 1,000 ML IV SCH ×2 (08:03→15:51)
--- NOTE | 2023-09-04 08:40 | Hospitalist Consultation ---
Date of Consultation September 04, 2023 Assessment & Plan (1) Postoperative back pain: management of pain per primary service -- ? repeat imaging -- per primary, no need for repeat imaging at this time. -Suspect overdoing it at home/constipation/possible urinary retention contributing Pain medication/regimen per primary service Ambulation w/ PT/OT Chua remaining in place until cleared by PT Rec checking UA Constipation--> No bowel movement in ~4 days -- suspect contributing to pain, but passing gas. reports has been over a week -Miralax scheduled TID, colace BID. Consider KUB if ongoing issues/may need suppository TSH to be checked as below Labs for today ordered for eval -- will follow up, see hyponatremia below (2) Hyponatremia: appearing chronic in nature, no prior TSH in system but reported hx carpel tunnel/bowel changes/anxiety and will check TSH, also serum osm for further information Na was 131 at discharge, 126 on admission ?component of uncontrolled pain, ?tramadol use. Not on any diuretics/HTCZ Placed on NSS @ 125cc/hr on admission -- will message Dr medrano about need to continue Repeat chemistries added for this morning as well as serum osm. Check UA for more info/urine sodium -- if worse will monitor more frequently with labs (3) Chronic pain: pain control as above, appearing comfortable at present (4) Anxiety: (5) BPH w urinary obs/LUTS: continues on flomax ?if had Chua last admission, check UA/cx if indicated (6) Hypertension: Not on meds, will change to AHA diet (7) Hypercholesteremia: Continue atorvastatin 20mg HS Plan Thank you for allowing hospitalist service to participate in the care of Mr Villavicencio Hospitalist service will follow along. Please call with any questions/concerns. Supervising Physician Co-Signing Physician Notes The patient was not seen by me. The chart was reviewed. Case discussed with BALTAZAR Mosqueda. Agree with assessment and plan History of Present Illness Reason for Consultation: med management Requesting Physician: Dr Medrano Attending Physician: Thaddeus Medrano, History of Present Illness 62yo male with PMHx significant for HTN, HLD, Anxiety, BPH, carpel tunnel, presented for uncontrolled back pain after having spinal surgery with Dr Medrano on 08/30. Per OP report, had #1 lumbar decompression bilateral medial facetectomies and foraminotomies L3-L4 L4-5. #2 posterior spinal fusion L3-L4 L4-5. #3 placed posterior instrumentation L3-L5. #4 interbody fusion L3-L4 L4-L5 #5 placement Spira 11 x 26 mm at L3-L4 and 13 x 26 mm x 2 at L4-5. #6 placement locally harvested morselized autograft in the posterior gutters. #7 placement of I factor in the interbody space and infuse collagen sponge, mass graft in the posterior lateral gutters.EBL 300cc. MRI prior to surgery noting 1.6cm synovial cyst arising from left facet joint at L4-L5 contributing to severe central canal stenosis. Seen in room 382-1, sitting up in bed on the phone. Reports was doing well post-operatively and was discharged 09/01 however presented with back pain, starting evening 09/02, that started in low back and radiated from lumbar region to buttocks bilaterally but not down into the legs past the level of the knee on the left, not as far on the right. [place] like his legs were going to give out/fall over. Attempted to get pain controlled with oral medications including tramadol and oxycodone. Reports feeling better than admission, got tramadol this morning for pain. Chua in place as had issues with standing initially, reports waiting for evaluation with therapy. Reports prior Chua w/ last surgery and once placed on admission had ~1100cc. He notes he hasn't had BM in about ~4 days, which is causing increased pressure to his back. Back pain low back w/ radiation down both legs, worse on the left to behind his knee cap. Seen by Dr Medrano and does not think infection to his back/need for imaging. Believes he may have over done it at home/too much movement/up&down 2 flights of stairs. Appears patient w/ chronically low sodium level for years, do not see ever had TSH checked. Will check as well as serum osm for eval. No fever/chills, chest pain, shortness of breath. Large complaint constipation and he was faithful about bowel regimen at discharge. Allergies Allergy/AdvReac Type Severity Reaction Status Date / Time No Known Allergies Allergy Verified 09/03/23 19:54 Home Medications Medication Instructions Recorded Confirmed Type coenzyme Q10 100 mg capsule 200 mg PO QAM 03/19/20 09/03/23 History valacyclovir 1 gram tablet 2,000 mg (2 x 1 gram) PO BID PRN 10/12/22 09/03/23 Rx herpes simplex, type 1 infection #60 tabs dutasteride 0.5 mg capsule 0.5 mg PO DAILY #30 caps 06/16/23 09/03/23 Rx (Avodart) tamsulosin 0.4 mg capsule 0.4 mg PO DAILY #30 caps 06/30/23 09/03/23 Rx atorvastatin 20 mg tablet 20 mg PO HS #90 tabs 08/17/23 09/03/23 Rx cyclobenzaprine 10 mg tablet 10 mg PO .COMPLEX PRN muscle spasm 08/24/23 09/03/23 Rx #90 tabs oxycodone 5 mg tablet 5 mg PO Q6H PRN pain #30 tabs 08/31/23 09/03/23 Rx tramadol 50 mg tablet 50 mg PO Q6H PRN pain, moderate 08/31/23 09/03/23 Rx #30 tabs Marijuana Vape 1 puff inhalation DAILY PRN Pain 09/03/23 09/03/23 History Patient History Medical History Sacroiliac joint pain Muscle strain of left gluteal region Degloving injury Sciatica of right side Hypertension Surgical History S/P trigger finger release H/O arthroscopy of right knee S/P wisdom tooth extraction History of surgery also has history of arm incision Family History Grandmother Cardiovascular disorder Heart disease Grandfather Cardiovascular disorder Heart disease Sister Heart disease Brother Prostate cancer Denies family history of Ovarian cancer Myocardial infarction Breast cancer Colorectal cancer Social History Smoking Status: Former smoker Tobacco Type: Cigarettes Age Started Using Tobacco: 19; Age Quit Using Tobacco: 54; packs per day: 1; Cigarettes Per Day: pt states he quites on and off again but has not smoked since; Second Hand Exposure: No; Do You Dip or Chew Tobacco: No; Hx Alcohol Use: Yes Alcohol type: beer and wine Hx Substance Use: No Preferred Language: Azeri Communication Ability: Effective Visual Impairment: No Limitations Hearing Ability: Normal Machine Fitter Required: No Beliefs That Will Affect Care: None marital status: Current Living Situation: Spouse current occupational status: employed Feels Safe at Home: Yes Safety Concerns: Feels Safe At This Time Childhood Exposure to Second-Hand Smoke: Yes Diet: other Diet Comment: brand diet Dental Care, Regularly: Yes Physical Activity Frequency: 3-4 Times per Week Seatbelt Use: always Sunscreen Use: Yes Assistive Devices: Walker Physical Exam 2 Physical Exam: General: WD/WN male sitting up in bed, on the phone, NAD HEENT: head normocephalic, atraumatic, mmm, trachea midline Resp; Even/unlabored, no tachypnea, no w/c/r, on room air CV: RRR, no significant m/r/g, no pitting edema/calf tenderness GI: +BS, slight distension, palpable stool, nontender (reporting some crampiness) : Chua draining yellow urine MSK/Neuro: strength equal bilaterally, follows commands, pulses palpable, no slurred speech/facial droop Psych: AOx3, cooperative Results & Data Results & Data Vital Signs (Past 12 Hours) Vital Signs Temp Pulse Pulse Pulse Resp BP BP 09/04/23 07:03 36.4 C L 62 16 137/79 09/03/23 21:30 36.8 C 85 16 134/78 09/03/23 21:18 73 16 113/64 09/03/23 21:00 82 18 113/64 Pulse Ox O2 Del Method 09/04/23 07:03 97 Room Air 09/03/23 21:30 95 Room Air 09/03/23 21:18 99 Room Air 09/03/23 21:00 99 Room Air Laboratory Results 09/03/23 20:23 09/03/23 20:23 PG Care Time/CCT Total # of Minutes Spent Total Time Spent with Patient: Total time spent is greater than 50% in coordination of care (as documented) at patient's floor/unit and/or counseling patient: Coding Level of Care Code 98447 IN/OBS CONSULT LVL 3,45M Diagnoses Postoperative back pain G89.18; M54.9 Hyponatremia E87.1 Chronic pain G89.29 Anxiety F41.9 BPH w urinary obs/LUTS N40.1; N13.8 Hypertension I10 Hypercholesteremia E78.00
--- NOTE | 2023-09-04 08:46 | History & Physical Report ---
Date of Service September 04, 2023 Assessment & Plan (1) Postoperative back pain: Plan: Assessment postop back pain. Plan at this time initiate a course of physical therapy today appropriate pain medications and anti-inflammatories. We will see how he progresses over the next few days hopefully home soon. Admission and Anticipated Discharge Date Admission Date: September 03, 2023 History of Present Illness Chief Complaint: Postoperative back pain Primary Care Provider: Francisco Flannery DO This is a 62-year-old male status post multilevel lumbar decompression fusion. He had an excellent postoperative course but on postop day 5 he started having significant back pain with limitations with ambulation. He denies any loss of bowel or bladder control denies any leg radiculopathy numbness or motor deficit. This morning he is able to sit up in bed. Allergies Allergy/AdvReac Type Severity Reaction Status Date / Time No Known Allergies Allergy Verified 09/03/23 19:54 Home Medications Medication Instructions Recorded Confirmed Type coenzyme Q10 100 mg capsule 200 mg PO QAM 03/19/20 09/03/23 History valacyclovir 1 gram tablet 2,000 mg (2 x 1 gram) PO BID PRN 10/12/22 09/03/23 Rx herpes simplex, type 1 infection #60 tabs dutasteride 0.5 mg capsule 0.5 mg PO DAILY #30 caps 06/16/23 09/03/23 Rx (Avodart) tamsulosin 0.4 mg capsule 0.4 mg PO DAILY #30 caps 06/30/23 09/03/23 Rx atorvastatin 20 mg tablet 20 mg PO HS #90 tabs 08/17/23 09/03/23 Rx cyclobenzaprine 10 mg tablet 10 mg PO .COMPLEX PRN muscle spasm 08/24/23 09/03/23 Rx #90 tabs oxycodone 5 mg tablet 5 mg PO Q6H PRN pain #30 tabs 08/31/23 09/03/23 Rx tramadol 50 mg tablet 50 mg PO Q6H PRN pain, moderate 08/31/23 09/03/23 Rx #30 tabs Marijuana Vape 1 puff inhalation DAILY PRN Pain 09/03/23 09/03/23 History Past Med/Surg History Medical History Sacroiliac joint pain Muscle strain of left gluteal region Degloving injury Sciatica of right side Hypertension Surgical History S/P trigger finger release H/O arthroscopy of right knee S/P wisdom tooth extraction History of surgery also has history of arm incision Family History Grandmother Cardiovascular disorder Heart disease Grandfather Cardiovascular disorder Heart disease Sister Heart disease Brother Prostate cancer Denies family history of Ovarian cancer Myocardial infarction Breast cancer Colorectal cancer Social History Smoking Status: Former smoker Tobacco Type: Cigarettes Age Started Using Tobacco: 19; Age Quit Using Tobacco: 54; packs per day: 1; Cigarettes Per Day: pt states he quites on and off again but has not smoked since; Second Hand Exposure: No; Do You Dip or Chew Tobacco: No; Hx Alcohol Use: Yes Alcohol type: beer and wine Hx Substance Use: No Preferred Language: Sinhala Communication Ability: Effective Visual Impairment: No Limitations Hearing Ability: Normal Warehouse Attendant Required: No Beliefs That Will Affect Care: None marital status: Current Living Situation: Spouse current occupational status: employed Feels Safe at Home: Yes Safety Concerns: Feels Safe At This Time Childhood Exposure to Second-Hand Smoke: Yes Diet: other Diet Comment: brand diet Dental Care, Regularly: Yes Physical Activity Frequency: 3-4 Times per Week Seatbelt Use: always Sunscreen Use: Yes Assistive Devices: Walker Physical Exam Physical Exam: Patient is able to sit up in bed. The incision is intact without erythema or drainage. There is minimal swelling. He is quite tender palpation lumbar musculature. Is good strength testing lower extremities. Sensory is intact. Results & Data Results & Data Vital Signs (Past 12 Hours) Vital Signs Temp Pulse Pulse Pulse Resp BP BP 09/04/23 07:03 36.4 C L 62 16 137/79 09/03/23 21:30 36.8 C 85 16 134/78 09/03/23 21:18 73 16 113/64 09/03/23 21:00 82 18 113/64 Pulse Ox O2 Del Method 09/04/23 07:03 97 Room Air 09/03/23 21:30 95 Room Air 12/01/23 21:18 99 Room Air 09/03/23 21:00 99 Room Air Code Status & VTE Plan VTE Prophylaxis Plan VTE Prophylaxis will be ordered: Yes
[2023-09-04] MEDS ORDERED: NON-FORMULARY MEDICATION (Coenzyme Q10 100 mg capsule) PO SCH (09:00)
[2023-09-04] MEDS: FINASTERIDE 5 MG TAB PO SCH (09:14)
[2023-09-04] MEDS: TAMSULOSIN HCL 0.4 MG CAP PO SCH (09:14)
[2023-09-04] MEDS: oxyCODONE HCL IR 5 MG TAB (IMMEDIATE RELEASE) PO PRN ×2 (10:07→17:20)
[2023-09-04 10:19] LABS: Hematocrit (blood only) 28.9 % (42.0-52.0); Hemoglobin 10.7 g/dl (14.0-18.0); Mean Corpuscular Hemoglobin 35.4 pg (25.0-34.0); Mean Corpuscular Volume 95.7 fL (80.0-100.0); Mean Platelet Volume 8.8 fL (9.4-12.4); Platelet Count 274 K/uL (130-400); RDW Coefficient of Variation 11.7 % (11.5-14.5); RDW Standard Deviation 40.6 fL (36.4-46.3); Red Blood Count 3.02 M/uL (4.70-6.10); White Blood Count 8.56 K/ul (4.8-10.8)
[2023-09-04 10:26] LABS: Albumin Globulin Ratio 1.5 (0.9-2); Albumin Level 3.9 gm/dl (3.4-5.0); BUN Creatinine Ratio 22.4 (10-20); Bilirubin,Total 0.7 mg/dl (0.2-1.0); C Reactive Protein 19.87 mg/dl (0-0.5); Calcium 9.3 mg/dl (8.6-10.3); Creatinine Clr Calc Pharmacy 117.5 ml/min; Est GFR (African American) 120.2 ml/min; Est GFR (Non-African American) 103.7 ml/min; Globulin 2.6 gm/dl (2.5-4.0); Magnesium 2.2 mg/dl (1.7-2.4); Potassium 4.5 mmol/L (3.5-5.1); Total Protein 6.5 gm/dl (6.0-8.3)
[2023-09-04 10:36] LABS: Appearance Urine Clear (Clear); Bilirubin Urine 1+ (Negative); Blood Urine Negative (Negative); Color Urine Yellow; Glucose Urine UA Negative (Negative); Ketones Urine 1+ (Negative); Leukocyte Esterase Urine Negative (Negative); Nitrite Urine Negative (Negative); Protein Urine Negative (Negative); Specific Gravity Urine >= 1.030 (1.000-1.030); Urobilinogen Urine Negative (Negative)
[2023-09-04 10:39] LABS: Thyroid Stimulating Hormone 0.814 uIu/ml (0.300-4.500)
[2023-09-04] MEDS: DOCUSATE SODIUM 100 MG CAP PO SCH ×2 (11:30→20:17)
[2023-09-04] MEDS: POLYETHYLENE (MIRALAX) 17 GM PACK PO SCH ×2 (11:30→20:17)
[2023-09-04 11:36] LABS: Basophils # (auto) 0.01 K/uL (0.00-0.20); Basophils % (auto) 0.1 %; Immature Granulocytes # (auto) 0.11 K/uL (0.01-0.20); Immature Granulocytes % (auto) 1.3 %; Lymphocytes # (auto) 0.31 K/uL (1.20-3.40); Lymphocytes % (auto) 3.6 %; Monocytes # (auto) 0.11 K/uL (0.11-0.59); Monocytes % (auto) 1.3 %; Neutrophils # (auto) 8.02 K/uL (1.40-6.50); Neutrophils % (auto) 93.7 %
[2023-09-04] MEDS: HYDROmorphone INJ 1 MG/ML SYRINGE IV PRN ×2 (11:43→20:31)
[2023-09-04] MEDS: diazePAM 5 MG TABLET PO PRN ×2 (15:41→23:39)
[2023-09-04 17:07] LABS: Potassium 4.6 mmol/L (3.5-5.1)
[2023-09-04 17:13] LABS: BUN Creatinine Ratio 26.7 (10-20); Est GFR (African American) 114.8 ml/min
[2023-09-04] MEDS: ATORVASTATIN 20 MG TAB PO SCH (20:17)
[2023-09-04] MEDS: MELATONIN 3 MG TAB PO PRN (22:31)
[2023-09-05] MEDS: SODIUM CHLORIDE 0.9% 1,000 ML IV SCH ×2 (04:14→17:28)
[2023-09-05 07:58] LABS: BUN Creatinine Ratio 22.8 (10-20); Calcium 8.6 mg/dl (8.6-10.3); Creatinine Clr Calc Pharmacy 138.1 ml/min; Est GFR (African American) 128.5 ml/min; Est GFR (Non-African American) 110.8 ml/min; Potassium 4.5 mmol/L (3.5-5.1)
--- NOTE | 2023-09-05 08:50 | Hospitalist Progress Note ---
Date of Service September 05, 2023 Assessment & Plan (1) Postoperative back pain: Plan: Suspect likely overdoing it at home, also cannot r/o urinary retention/constipation contributing as hasn't moved bowels in ~1 week since surgery Ortho primary service Was provided Dexamethasone 8mg q8h x 3 doses on admission, completed last evening 09/04 Pain control, Cagle catheter per primary Bowel regimen -- I added colace BID, miralax TID --> increased flatus reported, believes possible BM this afternoon. Monitor Continue cagle per primary reported through tomorrow Reports feeling better, continued therapy/inpatient stay See below regarding hyponatremia/further testing (2) Hyponatremia: Plan: appearing chronic in nature, no prior TSH in system but reported hx carpel tunnel/bowel changes/anxiety and will check TSH, serum osm/urine na for further information. Not on diuretics Na 131 on discharge, 126 on admission. Placed on NSS @ 125cc/hr by primary service, I repeated labs 09/04 w/ Na 128 in AM and TSH wnl, however serum osm 271 and placed order for urine osm which was 751 suggesting possible underlying dysregulation salt, ?underlying adrenal insufficiency. Does report some salt cravings at times recently as well Decreased IVF to NS @ 75cc/hr overnight, placed on fluid restriction 1500ml/daily given repeat Na in evening 125 Na improved to 129 on AM labs, continues on NS @ 75cc/hr for now/fluid restriction Random cortisol checked, 1.18 and added Cortisol AM to labs which is LOW at 0.66 Discussed w/ patient who ok'd discussion w/ outpatient endocrinology provider gi telma recent steroid use w/ dexamethasone. --> Recs to repeat Cortisol AM again in AM since no further steroids as well as ACTH --> Rec to have outpatient ref for further eval w/ endocrinology for possible underling addisons/adrenal insufficiency (3) Chronic pain: Plan: pain control as above, appearing comfortable at present and improved. working on bowel regimen as above (4) BPH w urinary obs/LUTS: Plan: Cagle placed on admission per primary, patient reports did have large amount drained once placed. Suspect urinary retention from constipation as above UA w/o evidence for infection, cagle remaining in place per primary and working on bowel regimen/therapy Hopeful removal of cagle prior to dc/ensure able to void without issues Continues on flomax (5) Hypertension: Plan: Not on meds, diet changed to AHA (6) Hypercholesteremia: Plan: Continue atorvastatin 20mg HS Plan Thank you for allowing hospitalist service to participate in the care of Mr Villavicencio Hospitalist service will follow along. Checking cortisol/ACTH w/ AM labs Admission and Anticipated Discharge Date Admission Date: September 03, 2023 Supervising Physician Co-Signing Physician Notes The patient was not seen by me. The chart was reviewed. Case discussed with BALTAZAR Mosqueda. Agree with assessment and plan Subjective Eval this morning, sitting up in bed. Had weird dream/awoken and thought he was still in the room. He states he feels better today -- discussed sodium levels/water restriction, possible adrenal insufficiency. Feels much better since getting steroids. Ok w/ me discussing care w/ and endocrinology for follow up if able to contact today. No fever/chills, chest pain, shortness of breath. Passing increased gas, on bowel regimen. Feels like he is close to moving his bowels. Questions/concerns addressed at this time. Physical Exam Physical Exam: General: WD/WN male sitting up in bed, on his computer, NAD, Juul pod on bedside table noted HEENT: head normocephalic, atraumatic, mmm, trachea midline Resp; Even/unlabored, no tachypnea, no w/c/r, on room air CV: RRR, no significant m/r/g, no pitting edema/calf tenderness GI: less distension, increased bowel sounds, no overt tenderness : Cagle draining yellow urine MSK/Neuro: strength equal bilaterally, follows commands, pulses palpable, no slurred speech/facial droop Psych: AOx3, cooperative Results & Data Results & Data Vital Signs (Past 12 Hours) Vital Signs Temp Pulse Resp BP Pulse Ox O2 Del Method 09/05/23 07:00 36.6 C 76 16 151/86 H 98 Room Air Laboratory Results 09/05/23 09/04/23 09/04/23 Range/Units 07:04 16:41 13:10 Sodium 129 L 125 L (136-145) mmol/L Potassium 4.5 4.6 (3.5-5.1) mmol/L Chloride 96 L 92 L (98-107) mmol/L Carbon Dioxide 28 27 (21-32) mmol/L Anion Gap 5 6 (3-11) BUN 13 20 (6-23) mg/dl Creatinine 0.57 L 0.75 (0.6-1.4) mg/dl Est Cr Clr Drug Dosing 138.1 105.0 ml/min Est GFR ( Amer) 128.5 114.8 ml/min Est GFR (Non-Af Amer) 110.8 99.0 ml/min BUN/Creatinine Ratio 22.8 H 26.7 H (10-20) Glucose 145 H 146 H (70-99(Fasting)) mg/dl Calcium 8.6 9.0 (8.6-10.3) mg/dl B-Natriuretic Peptide 142 H (0-100) pg/ml Vitamin B1 Pending Random Cortisol 1.18 mcg/dl Cortisol AM Sample 0.66 L (6.2-22.6) mcg/dl Urine Osmolality 751 (500-800) mOsm/kg PG Care Time/CCT Total # of Minutes Spent Total Time Spent with Patient: Total time spent is greater than 50% in coordination of care (as documented) at patient's floor/unit and/or counseling patient: Coding Level of Care Code 23558 SUB INP/OBS CARE 3/50MIN Diagnoses Postoperative back pain G89.18; M54.9 Hyponatremia E87.1 Chronic pain G89.29 BPH w urinary obs/LUTS N40.1; N13.8 Hypertension I10 Hypercholesteremia E78.00
[2023-09-05] MEDS: oxyCODONE HCL IR 5 MG TAB (IMMEDIATE RELEASE) PO PRN ×3 (09:00→17:30)
[2023-09-05] MEDS: DOCUSATE SODIUM 100 MG CAP PO SCH ×2 (09:01→20:24)
[2023-09-05] MEDS: FINASTERIDE 5 MG TAB PO SCH (09:01)
[2023-09-05] MEDS: TAMSULOSIN HCL 0.4 MG CAP PO SCH (09:01)
[2023-09-05] MEDS: POLYETHYLENE (MIRALAX) 17 GM PACK PO SCH ×3 (09:01→20:24)
--- NOTE | 2023-09-05 11:11 | Orthopedic Progress Note ---
Date of Service September 05, 2023 Assessment & Plan (1) Hyponatremia: Plan: We will continue to encourage walking as tolerated. We will continue to monitor his electrolytes hopefully discharge home Wednesday or Wednesday. Admission and Anticipated Discharge Date Admission Date: September 03, 2023 Subjective Patient's back pain is much more controlled. He has no leg pain. His ambulation is improved. Physical Exam Physical Exam: On exam he does appear comfortable. Is constricted testing. Results & Data Vital Signs (Past 12 Hours) Vital Signs Temp Pulse Resp BP Pulse Ox O2 Del Method 09/05/23 07:00 36.6 C 76 16 151/86 H 98 Room Air
[2023-09-05] MEDS: diazePAM 5 MG TABLET PO PRN (12:20)
[2023-09-05] MEDS ORDERED: bisacodyL 10 MG SUPP PR PRN (20:05)
[2023-09-05] MEDS: HYDROmorphone INJ 1 MG/ML SYRINGE IV PRN (20:24)
[2023-09-05] MEDS: ATORVASTATIN 20 MG TAB PO SCH (20:24)
[2023-09-05] MEDS: MELATONIN 3 MG TAB PO PRN (21:04)
[2023-09-06] MEDS: SODIUM CHLORIDE 0.9% 1,000 ML IV SCH (06:12)
[2023-09-06 08:02] LABS: BUN Creatinine Ratio 24.2 (10-20); Calcium 8.4 mg/dl (8.6-10.3); Est GFR (African American) 124.1 ml/min; Est GFR (Non-African American) 107.1 ml/min
--- NOTE | 2023-09-06 08:17 | Hospitalist Progress Note ---
Date of Service September 06, 2023 Assessment & Plan (1) Postoperative back pain: Plan: Suspect likely overdoing it at home, also cannot r/o urinary retention/constipation contributing as hasn't moved bowels in ~1 week since surgery Ortho primary service Was provided Dexamethasone 8mg q8h x 3 doses on admission, completed last evening 09/04 Pain control, Cagle catheter per primary Bowel regimen -- I added colace BID, miralax TID --> increased flatus reported, +BM 09/06 Discussed would continue bowel regimen at discharge DC cagle for today --> monitoring to ensure able to void once cagle removed Feeling much better today, up in chair. Therapy per primary service --> hoping for discharge to home this afternoon if no issues DC IVF 09/06, Na 131 and further work-up below/endo follow up likely (2) Hyponatremia: Plan: appearing chronic in nature, no prior TSH in system but reported hx carpel tunnel/bowel changes/anxiety and will check TSH, serum osm/urine na for further information. Not on diuretics Na 131 on discharge, 126 on admission. Placed on NSS @ 125cc/hr by primary service, repeated labs 09/04 w/ Na 128 in AM and TSH wnl Serum osm 271 and placed order for urine osm which was 751 suggesting possible underlying dysregulation salt, ?underlying adrenal insufficiency. Does report some salt cravings at times recently as well Decreased IVF to NS @ 75cc/hr overnight, placed on fluid restriction 1500ml/daily and Na improved to 129 on AM labs. Na 131 this morning, IVF discontinued Random cortisol checked, 1.18 and added Cortisol AM to labs which was LOW at 0.66 Discussed w/ patient who ok'd discussion w/ outpatient endocrinology provider given recent steroid use w/ dexamethasone. --> Recs to repeat Cortisol AM again in AM since no further steroids as well as ACTH CORTISOL AM LOW 0.59 today, discussed w/ endo suggesting adrenal insufficiency and starting hydrocortisone 10mg QAM/5mg afternoon Also started florinef 0.1mg daily and follow up arranged for next Wednesday outpatient endocrinology ACTH pending [place], likely won't be back until next week. Further titration/management per endo in follow up (3) Chronic pain: Plan: pain control as above, appearing comfortable at present and improved. working on bowel regimen as above +BM, pain well controlled reported (4) BPH w urinary obs/LUTS: Plan: Cagle placed on admission per primary, patient reports did have large amount drained once placed. Suspect urinary retention from constipation as above UA w/o evidence for infection, cagle remaining in place per primary and working on bowel regimen/therapy Cagle to dc this AM, monitor for issues w/ voiding. Continue flomax daily (5) Hypertension: Plan: Not on meds, diet changed to AHA BP 143/85 (6) Hypercholesteremia: Plan: Continue atorvastatin 20mg HS Plan Thank you for allowing hospitalist service to participate in the care of Mr Villavicencio Patient for dc this afternoon if no issues voiding w/ cagle removal Endo f/u arranged, meds sent Hospitalist service will sign off at this time. Please call with any questions/concerns. Admission and Anticipated Discharge Date Admission Date: September 03, 2023 Supervising Physician Co-Signing Physician Notes The patient was not seen by me. The chart was reviewed. Case discussed with BALTAZAR Mosqueda. Agree with assessment and plan Subjective Patient evaluated this morning, doing well. +BM this morning. Waiting to remove cagle and ensure able to void. Discussed labs/adrenal insufficiency and starting meds/follow up with endocrinology next week. Physical Exam 2 Physical Exam: General: WD/WN male sitting up in bed, on his computer, NAD, feeling better HEENT: head normocephalic, atraumatic, mmm, trachea midline Resp; Even/unlabored, no tachypnea, no w/c/r, on room air CV: RRR, no significant m/r/g, no pitting edema/calf tenderness GI: less distension, increased bowel sounds, no overt tenderness : Cagle draining yellow urine MSK/Neuro: strength equal bilaterally, follows commands, pulses palpable, no slurred speech/facial droop Psych: AOx3, cooperative Results & Data Results & Data Vital Signs (Past 12 Hours) Vital Signs Temp Pulse Resp BP Pulse Ox O2 Del Method 09/06/23 07:33 36.4 C L 65 17 143/85 H 96 Room Air 09/05/23 20:30 Room Air 09/05/23 20:19 36.6 C 82 16 119/68 96 Room Air Laboratory Results 09/04/23 09:28 09/06/23 07:10 Cortisol AM 0.59 ACTH pending PG Care Time/CCT Total # of Minutes Spent Total Time Spent with Patient: Total time spent is greater than 50% in coordination of care (as documented) at patient's floor/unit and/or counseling patient: Coding Level of Care Code 80834 SUB INP/OBS CARE 3/50MIN Diagnoses Postoperative back pain G89.18; M54.9 Hyponatremia E87.1 Chronic pain G89.29 BPH w urinary obs/LUTS N40.1; N13.8 Hypertension I10 Hypercholesteremia E78.00
[2023-09-06] MEDS: FINASTERIDE 5 MG TAB PO SCH (08:46)
[2023-09-06] MEDS: TAMSULOSIN HCL 0.4 MG CAP PO SCH (08:46)
[2023-09-06] MEDS: DOCUSATE SODIUM 100 MG CAP PO SCH (08:46)
[2023-09-06] MEDS: POLYETHYLENE (MIRALAX) 17 GM PACK PO SCH ×2 (08:47→14:44)
[2023-09-06] MEDS ORDERED: HYDROCORTISONE 10 MG TAB PO SCH ×2 (09:30→17:00)
[2023-09-06] MEDS ORDERED: FLUDROCORTISONE ACETATE 0.1 MG TAB PO SCH (09:30)
[2023-09-06] MEDS: oxyCODONE HCL IR 5 MG TAB (IMMEDIATE RELEASE) PO PRN ×2 (11:30→16:13)
--- NOTE | 2023-09-07 07:55 | Discharge Summary ---
Date of Service September 07, 2023 Admission HPI Per Admitting Provider This is a 62-year-old male status post multilevel lumbar decompression fusion. He had an excellent postoperative course but on postop day 5 he started having significant back pain with limitations with ambulation. He denies any loss of bowel or bladder control denies any leg radiculopathy numbness or motor deficit. This morning he is able to sit up in bed. Principal Diagnosis Hyponatremia Discharge Data Allergies Allergy/AdvReac Type Severity Reaction Status Date / Time No Known Allergies Allergy Verified 09/03/23 19:54 Consultations 09/04/23 06:37 Consult Hospitalist Routine Hospital Course (1) Hyponatremia: Patient was admitted with significant postoperative back pain and hyponatremia. He was appropriately medically managed and improved his function over the course of his stay was up and ambulating without difficulty. Had excellent strength testing upon discharge and subsequent discharge home. Discharge orders instructions found in chart for further review. Total Time Total Time Spent Total Time Spent (In Minutes): 20 minutes Discharge Plan Discharge Items Patient Disposition: Home - Self-Care Reason For Visit: BACK PAIN Discharge Diagnosis: Hyponatremia Activity: As commented below Non-emergency contact: Primary Care Provider Call non-emergency contact if: you have any medication questions Follow-up/Referrals: Francisco Flannery DO [Primary Care Provider] - 09/14/23 9:20 am Diet: Regular Addtl Attending Provider Instructions: ACTIVITY RECOMMENDATIONS: SELF CARE INSTRUCTIONS AFTER THORACIC/LUMBAR FUSIONS 1. You may walk to your tolerance. It is good exercise for your legs and back. Expect some back and intermittent leg aches and pains. 2. You may perform "counter-top" level activities (make a sandwich, reginald with a project, etc.). 3. No bending or lifting of more than 10 pounds or back twisting of any nature (roll like a log when turning in bed). 4. You may ride in a car for 20-30 minutes at a time. No driving until after your first visit with your doctor. 5. Frequent changes of position and restricting sitting to 30 minutes at a time will help limit the amount of back spasms and stiffness you may experience. 6. You may discontinue the use of ambulatory aids (cane, crutches, etc.) once your strength and confidence allow. 7. You may singer songwriter the shower and let water strike your incision when you arrive home at least once daily. Do not take a tub bath, sit in a hot tub or go into a swimming pool until after your first recheck in the office. SPECIAL CARE INSTRUCTIONS: VERY IMPORTANT TO READ AND REVIEW A. Your surgical incision has been closed with a cosmetic suture under the skin that will dissolve in about 6 weeks. In 14 days, you can use a pair of clean scissors and cut the suture that is left outside of the skin at the ends of your incision. 1. The small skin tapes can be removed 7 days after surgery if they have not fallen off by that point. 2. You may keep the wound open to air as much as possible to promote healing after post-op day number 5 unless told otherwise by your doctor. 3. If you think the wound looks like it is becoming infected (redness or worsening drainage) and/or you are experiencing fever, chill or worsening back pain and muscle spasms, contact the office so that we may evaluate you as soon as possible. B. Complications are uncommon, but please contact us if you have any signs or symptoms of: 1. wound infection (fever higher than 102.5 degrees F, redness, separation of wound, drainage, or increasing pain from the incision) 2. blood clots in legs (pain, swelling, redness and warmth in legs) 3. urinary tract infection (fever higher than 102.5 degrees F, burning upon urination or increased frequency of urination) 4. nerve problems (inability to walk on your toes or heels, numbness, loss of bowel or bladder control) 5. any other symptoms that concern you C. Please call the office at if you have any concerns or questions about your operation or recovery. D. No smoking! Smoking drastically decreases the chance of a solid fusion. E. Do not take any anti-inflammatory medications (Indocin, Advil, Motrin, Aspirin, Naprosyn, etc.) as these may inhibit the chance of a solid fusion. Tylenol is okay to take for pain. MANAGING PAIN AFTER SPINAL SURGERY 1. Narcotic medication is intended for short-term use and will be provided for surgical pain. Surgical pain usually lasts for a period of 4-6 weeks. Narcotic medication includes Percocet, Vicodin, Darvocet, Tylenol #3 or Lortab. 2. Longer-term pain is more appropriately treated with non-narcotic medication such as Tylenol ES. 3. Muscle spasm is not appropriately treated with narcotics. Muscle relaxers such as Soma, Flexeril or Skelaxin can be used along with Tylenol ES. 4. Remember that we all live with some "aches and pains". This is not unusual or uncommon after an injury or as we get older. a. Back pain is expected and may include muscle spasms for 4 to 6 weeks after surgery. The pain should gradually improve. If the pain worsens for no apparent reason, please contact the office. b. Intermittent leg pain may also be experienced and should not be concerned about unless it worsens for no apparent reason. If so, please contact the office. 5. We will provide appropriate medication within the normal guidelines of their prescribed use. We will also be very cautious and aware of potential abuse and extended duration of patients' medication needs. a. Pain medications are for your comfort and to assist with sleep and rest so that the tissue can heal. They are not provided in order to return to normal activity and should not be used through the day. To do so or worsening pain at night can result from ongoing tissue damage and development of tolerance to the prescribed medicine. 6. Please allow 2-3 days to process refills. Prescriptions will not be mailed but must be picked up at the office. FOLLOW UP VISIT: Keep your scheduled follow-up appointment. Any questions, please call the office at . Pending Studies at Discharge: No Stand-Alone Forms: My [facility], Smoking Cessation Medications and DC Order Prescriptions: New hydrocortisone 5 mg tablet See Rx Instructions .ROUTE .COMPLEX Qty: 90 0RF Rx Instructions: 10mg by mouth daily in the morning, 5mg by mouth in the afternoon daily fludrocortisone 0.1 mg tablet 0.1 mg PO DAILY Qty: 30 0RF Continued valacyclovir 1 gram tablet 2,000 mg PO BID PRN (Reason: herpes simplex, type 1 infection) Qty: 60 5RF dutasteride [Avodart] 0.5 mg capsule 0.5 mg PO DAILY Qty: 30 11RF atorvastatin 20 mg tablet 20 mg PO HS Qty: 90 3RF tamsulosin 0.4 mg capsule 0.4 mg PO DAILY Qty: 30 11RF cyclobenzaprine 10 mg tablet 10 mg PO .COMPLEX PRN (Reason: muscle spasm) Qty: 90 0RF Rx Instructions: 10 mg orally PRN; coenzyme Q10 100 mg capsule 200 mg PO QAM tramadol 50 mg tablet 50 mg PO Q6H PRN (Reason: pain, moderate) Qty: 30 0RF oxycodone 5 mg tablet 5 mg PO Q6H PRN (Reason: pain) Qty: 30 0RF Marijuana Vape 1 puff inhalation DAILY PRN (Reason: Pain) Discharge Orders: Discharge Order (Routine); Ordered 09/06/23 Ordered By: Thaddeus Lal/Other Patient Handouts: Hyponatremia Dc Admission Data Admit Date/Time: 09/03/23 20:09 Attending Provider: Thaddeus Medrnao Admit Provider: Thaddeus Medrano Primary Care Provider: Francisco Flannery Other Providers: Syed Chatman; Prateek Hampton Other Interventions: Discharge Summary Assessment (RN) Last Done: 09/06/23 13:26
== END 2023-09-06 16:40 | disposition home or self-care (01) ==
LOC: 3N 18:26 → ED 18:26 → 3N 21:18